=== PATIENT | female | born 1990 | race Hispanic/Latino ===

== ENCOUNTER 2018-07-22 21:02 | Emergency (ER) | payer SELFPAY ==
[2018-07-22 22:34] LABS: Urine Blood NEGATIVE (NEG); Urine Glucose NEGATIVE (NEG); Urine Protein 1+ (NEG)
[2018-07-22] MEDS ORDERED: KETOROLAC 30 MG/ML INJ ONE (22:58)
--- NOTE | 2018-07-22 23:14 | ER ---
Nurse's Notes [facility] Name: Cristiana Dunn Age: 28 yrs Sex: Female : 1990 Arrival Date: 07/22/2018 Time: 21:03 Bed 25 Private MD: Diagnosis: Abdominal and pelvic pain Presentation: 07/22 21:05 Presenting complaint: Patient states: "I am having abdominal pain. I have been told it jd3 is ovarian cyst so it might be that.". Transition of care: patient was not received from another setting of care. Onset of symptoms was July 22, 2018. Risk Assessment: Do you want to hurt yourself or someone else? Patient reports no desire to harm self or others. Initial Sepsis Screen: Does the patient meet any 2 criteria? No. Patient's initial sepsis screen is negative. Does the patient have a suspected source of infection? No. Patient's initial sepsis screen is negative. Care prior to arrival: None. 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 - Social history:: Smoking status: Patient uses tobacco products, denies chronic smoking, but will smoke occasionally. - Ebola Screening: : Patient negative for fever greater than or equal to 101.5 degrees Fahrenheit, and additional compatible Ebola Virus Disease symptoms. Screenin:27 Abuse screen: Denies threats or abuse. Nutritional screening: No deficits noted. tl3 Tuberculosis screening: No symptoms or risk factors identified. Fall Risk None identified. Assessment: 22:27 General: Appears uncomfortable, slender, well groomed, well developed, well nourished, tl3 Behavior is calm, cooperative, appropriate for age. Pain: Complains of pain in suprapubic area. Neuro: Level of Consciousness is awake, alert, obeys commands, Oriented to person, place, time, situation, Appropriate for age. Cardiovascular: Patient's skin is warm and dry. Respiratory: Airway is patent Respiratory effort is even, unlabored, Respiratory pattern is regular, symmetrical. GI: Bowel sounds present X 4 quads. Abdomen is tender to palpation in suprapubic area. : Urine is clear. 23:25 Reassessment: Patient and/or family updated on plan of care and expected duration. Pain tl3 level reassessed. Patient is alert, oriented x 3, equal unlabored respirations, skin warm/dry/pink. Vital Signs: 21:08 BP 110 / 58; Pulse 95; Resp 18 S; Temp 98.0(O); Pulse Ox 100% on R/A; Weight 84 kg (R); jd3 Height 5 ft. 9 in. (175.26 cm) (R); Pain 10/10; 23:25 BP 108 / 56; Pulse 78; Resp 18; Pulse Ox 100% on R/A; tl3 21:08 Body Mass Index 27.35 (84.00 kg, 175.26 cm) jd3 ED Course: 21:03 Patient arrived in ED. am2 21:06 Triage completed. jd3 21:09 Arm band placed on. jd3 21:31 [facility] kb 21:31 Leonel Silvestre MD is Attending Physician. kb 22:11 Gretchen Oreilly, CRISTELA is Primary Nurse. tl3 22:15 Urine collected: clean catch specimen, clear, shadia colored, Amount Voided: 100mL. jp3 22:27 Bed in low position. Call light in reach. tl3 22:31 US Transvaginal Study (Probe) In Process Unspecified. EDMS 23:25 No provider procedures requiring assistance completed. Patient did not have IV access tl3 during this emergency room visit. Administered Medications: 22:50 Drug: TORadol 60 mg Route: IM; Site: right gluteus; tl3 22:51 Follow up: Response: Medication administered at discharge. tl3 Outcome: 23:13 Discharge ordered by . kb 23:25 Discharged to home ambulatory. tl3 23:25 Condition: stable 23:25 Discharge instructions given to patient, family, Instructed on discharge instructions, follow up and referral plans. medication usage, Demonstrated understanding of instructions, follow-up care, medications, Prescriptions given X 1. 23:27 Patient left the ED. tl3 Signatures: Dispatcher [employer] EDMS Marilou Iyer FNP-C KEY WORKER-CkScarlet Solis am2 Curt Segura, RN RN jd3 Gretchen Oreilly RN RN tl3 Lonnie Starr jp3 Corrections: (The following items were deleted from the chart) 21:09 21:08 LMP 06/09/2018 stephenie jd3
--- NOTE | 2018-07-22 23:14 | EDPHYS ---
Physician Documentation [facility] Name: Cristiana Dunn Age: 28 yrs Sex: Female : 1990 Arrival Date: 07/22/2018 Time: 21:03 Bed 25 Private MD: ED Physician Leonel Silvestre HPI: 07/22 22:16 This 28 yrs old Female presents to ER via Ambulatory with complaints of Pelvic kb Pain, Abdominal Pain, Cyst. 22:16 The patient presents with pelvic pain, that is located in/on the suprapubic area, the kb pain does not radiate, the pain is described as moderate, intermittent. Onset: The symptoms/episode began/occurred today. Modifying factors: The symptoms are alleviated by nothing, the symptoms are aggravated by nothing. Associated signs and symptoms: The patient has no apparent associated signs or symptoms. Severity of symptoms: At their worst the symptoms were mild, moderate, in the emergency department the symptoms are unchanged. The patient has experienced a previous episode, last year, and the symptoms today are exactly the same, ovarian cyst. The patient has not recently seen a physician. 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 - Social history:: Smoking status: Patient uses tobacco products, denies chronic smoking, but will smoke occasionally. - Ebola Screening: : Patient negative for fever greater than or equal to 101.5 degrees Fahrenheit, and additional compatible Ebola Virus Disease symptoms. ROS: 22:15 Constitutional: Negative for fever, chills, and weight loss, Cardiovascular: Negative kb for chest pain, palpitations, and edema, Respiratory: Negative for shortness of breath, cough, wheezing, and pleuritic chest pain, Abdomen/GI: Negative for abdominal pain, nausea, vomiting, diarrhea, and constipation, MS/Extremity: Negative for injury and deformity, Skin: Negative for injury, rash, and discoloration, Neuro: Negative for headache, weakness, numbness, tingling, and seizure. 22:15 : Positive for pelvic pain. Exam: 22:15 Constitutional: This is a well developed, well nourished patient who is awake, alert, kb and in no acute distress. Head/Face: Normocephalic, atraumatic. Chest/axilla: Normal chest wall appearance and motion. Nontender with no deformity. No lesions are appreciated. Cardiovascular: Regular rate and rhythm with a normal S1 and S2. No gallops, murmurs, or rubs. Normal PMI, no JVD. No pulse deficits. Respiratory: Lungs have equal breath sounds bilaterally, clear to auscultation and percussion. No rales, rhonchi or wheezes noted. No increased work of breathing, no retractions or nasal flaring. Abdomen/GI: Soft, non-tender, with normal bowel sounds. No distension or tympany. No guarding or rebound. No evidence of tenderness throughout. Skin: Warm, dry with normal turgor. Normal color with no rashes, no lesions, and no evidence of cellulitis. MS/ Extremity: Pulses equal, no cyanosis. Neurovascular intact. Full, normal range of motion. Neuro: Awake and alert, GCS 15, oriented to person, place, time, and situation. Cranial nerves II-XII grossly intact. Motor strength 5/5 in all extremities. Sensory grossly intact. Cerebellar exam normal. Normal gait. 22:15 Abdomen/GI: Palpation: mild abdominal tenderness, in the suprapubic area. Vital Signs: 21:08 BP 110 / 58; Pulse 95; Resp 18 S; Temp 98.0(O); Pulse Ox 100% on R/A; Weight 84 kg (R); jd3 Height 5 ft. 9 in. (175.26 cm) (R); Pain 10/10; 23:25 BP 108 / 56; Pulse 78; Resp 18; Pulse Ox 100% on R/A; tl3 21:08 Body Mass Index 27.35 (84.00 kg, 175.26 cm) jd3 MDM: 22:00 Patient medically screened. kb 22:14 Data reviewed: vital signs, nurses notes. Data interpreted: Pulse oximetry: on room air kb is 100 %. Interpretation: normal. 23:13 Counseling: I had a detailed discussion with the patient and/or guardian regarding: the kb historical points, exam findings, and any diagnostic results supporting the discharge/admit diagnosis, lab results, radiology results, the need for outpatient follow up, an OB/Gyne specialist, to return to the emergency department if symptoms worsen or persist or if there are any questions or concerns that arise at home. 23:13 Response to treatment: the patient's symptoms have resolved after treatment, the kb patient's pain is gone. 07/22 21:13 Order name: Urine Culture snw 07/22 21:13 Order name: Urine Microscopic Only snw 07/22 22:06 Order name: US Transvaginal Study (Probe) kb 07/22 22:22 Order name: Urine Dipstick--Ancillary (enter results); Complete Time: 22:40 mw2 07/22 22:22 Order name: Urine --Ancillary (enter results); Complete Time: 22:40 mw2 07/22 21:13 Order name: Urine Test (obtain specimen); Complete Time: 22:51 snw 07/22 21:13 Order name: Urine Dipstick-Ancillary (obtain specimen); Complete Time: 22:51 snw Administered Medications: 22:50 Drug: TORadol 60 mg Route: IM; Site: right gluteus; tl3 22:51 Follow up: Response: Medication administered at discharge. tl3 Disposition: 07/23 12:29 Co-signature as Attending Physician, Leonel Silvestre MD I agree with the assessment and deven plan of care. Disposition: 07/22/18 23:13 Discharged to Home. Impression: Abdominal and pelvic pain. - Condition is Stable. - Discharge Instructions: Pelvic Pain, Female, [id number]. - Prescriptions for Diclofenac Sodium 75 mg Oral Tablet, Delayed Release (E.C.) - take 1 tablet by ORAL route 2 times per day As needed; 30 tablet. - Medication Reconciliation Form, Thank You Letter, Antibiotic Education, Prescription Opioid Use form. - Follow up: Emergency Department; When: As needed; Reason: Worsening of condition. Follow up: Private Physician; When: 2 - 3 days; Reason: Recheck today's complaints, Continuance of care, Re-evaluation by your physician. Signatures: Dispatcher [employer] Marilou Anderson, Leonel Krishna MD MD cha Therrien, Shelly, FNP-C GODFREY-Curt Pearson RN RN jd3 Lowrey, Tammy, RN RN tl3 Corrections: (The following items were deleted from the chart) 07/22 23:27 23:13 07/22/2018 23:13 Discharged to Home. Impression: Abdominal and pelvic pain. tl3 Condition is Stable. Forms are Medication Reconciliation Form, Thank You Letter, Antibiotic Education, Prescription Opioid Use. Follow up: Emergency Department; When: As needed; Reason: Worsening of condition. Follow up: Private Physician; When: 2 - 3 days; Reason: Recheck today's complaints, Continuance of care, Re-evaluation by your physician. kb
[2018-07-22 23:37] LABS: Urine Bacteria LOADED /HPF (<20); Urine Culture Reflex Order NOT NEEDED; Urine Mucus LIGHT /HPF (NONE SEEN); Urine RBC NONE SEEN /HPF (NONE SEEN)
--- NOTE | 2018-07-23 08:29 | RAD REPORT ---
EXAM DESCRIPTION: US - Transvaginal Study Probe - 07/22/2018 10:32 pm CLINICAL HISTORY: Pelvic pain COMPARISON: none FINDINGS: The uterus measures 7 x 3 x 5cm. A fibroid is not seen. The endometrial stripe measures 10 millimeters The ovaries are normal in size and echotexture. Right and left adnexum unremarkable No significant free fluid is seen. IMPRESSION: Unremarkable pelvic ultrasound
== END 2018-07-22 23:27 | disposition home or self-care (01) ==
LOC: ER 21:02
DX: R10.2 Pelvic and perineal pain (principal); Z72.0 Tobacco use; Z91.041 Radiographic dye allergy status
CPT/HCPCS: 76830; 81003; 81015; 81025; 87077; 87086; 87088; 87186; 96372; 99284

== ENCOUNTER 2018-08-01 22:19 | Emergency (ER) | payer SELFPAY ==
--- OUTSIDE RECORDS SUMMARY | 2018-08-01 22:21 | XMS REPORT | Summary of Care ---
:1990 Author Organization [facility] Address [facility] [place], [place] [address]- Encounter HQ Aaron(FIN) [id number] Date(s): 06/16/16 - 06/16/[address] [address]- Discharge Diagnosis: Abdominal pain during Discharge Disposition: Home or Self Care Attending Physician: Rena Alcaraz MD Vital Signs Most recent to oldest [Reference Range]: 1 2 Height 175.26 cm (06/16/16 4:50 PM) Temperature Oral [96.4-99.1 DegF] 98.7 DegF (06/16/16 4:50 PM) Blood Pressure [90-140/60-90 mmHg] 114/72 mmHg (06/16/16 4:50 PM) Systolic Blood Pressure [90-140 mmHg] 119 mmHg (06/16/16 7:59 PM) Diastolic Blood Pressure [60-90 mmHg] 72 mmHg (06/16/16 7:59 PM) Respiratory Rate [14-20 BRMIN] 16 BRMIN 18 BRMIN (06/16/16 7:59 PM) (06/16/16 4:50 PM) Peripheral Pulse Rate [60-100 bpm] 82 bpm 82 bpm (06/16/16 7:59 PM) (06/16/16 4:50 PM) Weight 83.182 kg (06/16/16 4:50 PM) Body Mass Index 27.08 m2 (06/16/16 4:50 PM) Problem List No data available for this section Allergies, Adverse Reactions, Alerts Substance Reaction Severity Status NKDA Active Medications Saline Flush 0.9% 10 mL, Route: IVP, Drug Form: INJ, kg, PRN, PRN Line Flush, Start date: 16:50:00 CHARCOAL KILN BURNER, Duration: 30 day, Stop date: 07/16/16 16:49:00 CHARCOAL KILN BURNER Notes: (Same as: BD Posiflush) Start Date: 06/16/16 Stop Date: 06/16/16 Status: Discontinued Results BLOOD BANK RESULTS Most recent to oldest [Reference Range]: 1 ABO/Rh A POS *Unknown* (06/16/16 6:10 PM) ELECTROLYTES Most recent to oldest [Reference Range]: 1 Sodium Lvl [135-145 mEq/L] 136 mEq/L (06/16/16 6:10 PM) Potassium Lvl [3.5-5.1 mEq/L] 3.4 mEq/L *LOW* (06/16/16 6:10 PM) Chloride Lvl [95-109 mEq/L] 102 mEq/L (06/16/16 6:10 PM) CO2 [24-32 mEq/L] 24 mEq/L (06/16/16 6:10 PM) AGAP [10.0-20.0 mEq/L] 13.4 mEq/L (06/16/16 6:10 PM) CHEM PANEL Most recent to oldest [Reference Range]: 1 Creatinine Lvl [0.50-1.40 mg/dL] 0.50 mg/dL (06/16/16 6:10 PM) eGFR 135 mL/min/1.73m2 1 *NA* (06/16/16 6:10 PM) BUN [7-22 mg/dL] 6 mg/dL *LOW* (06/16/16 6:10 PM) B/C Ratio [6-25] 12 (06/16/16 6:10 PM) Glucose Lvl [70-99 mg/dL] 74 mg/dL (06/16/16 6:10 PM) Total Protein [6.4-8.4 g/dL] 7.9 g/dL (06/16/16 6:10 PM) Albumin Lvl [3.5-5.0 g/dL] 3.6 g/dL (06/16/16 6:10 PM) Globulin [2.7-4.2 g/dL] 4.3 g/dL *HI* (06/16/16 6:10 PM) A/G Ratio [0.7-1.6] 0.8 (06/16/16 6:10 PM) Calcium Lvl [8.5-10.5 mg/dL] 9.0 mg/dL (06/16/16 6:10 PM) ALT [0-65 unit/L] 30 unit/L (06/16/16 6:10 PM) AST [0-37 unit/L] 15 unit/L (06/16/16 6:10 PM) Alk Phos [39-136 unit/L] 53 unit/L (06/16/16 6:10 PM) Bili Total [0.2-1.3 mg/dL] 0.3 mg/dL (06/16/16 6:10 PM) 1Result Comment: The eGFR is calculated using the CKD-EPI formula. In most young , healthy individualsthe eGFR will be >90 mL/min/1.73m2. The eGFR declines with age. An eGFR of 60-89 may be normal in some populations, particularly the elderly, for whom the CKD-EPI formula has not been extensively validated. Use of the eGFR is not recommended in the following populations: Individuals with unstable creatinine concentrations, including patients and those with serious co-morbid conditions. Patients with extremes in muscle mass or diet. The data above are obtained from the National Kidney Disease Education Program ( NKDEP) which additionally recommends that when the eGFR is used in patients with extremes of body mass index for purposesof drug dosing, the eGFR should be multiplied by the estimated BMI.ENDOCRINOLOGY Most recent to oldest [Reference Range]: 1 [place] [address] mIU/mL *NA* (06/16/16 6:10 PM) URINE AND STOOL Most recent to oldest [Reference Range]: 1 UA Turbidity [Clear] Slight *ABN* (06/16/16 6:10 PM) UA Color Katelynn *NA* (06/16/16 6:10 PM) UA pH [5.0-8.0] 5.0 (06/16/16 6:10 PM) UA Spec Grav [<=1.030] 1.027 (06/16/16 6:10 PM) UA Glucose [Negative mg/dL] Negative mg/dL *NA* (06/16/16 6:10 PM) UA Blood [Negative] Negative (06/16/16 6:10 PM) UA Ketones [Negative mg/dL] Negative mg/dL *NA* (06/16/16 6:10 PM) UA Protein [Negative mg/dL] Negative mg/dL (06/16/16 6:10 PM) UA Urobilinogen [0.1-1.0 mg/dL] <=1.0 mg/dL *NA* (06/16/16 6:10 PM) UA Bili [Negative] Negative *NA* (06/16/16 6:10 PM) UA Leuk Est [Negative] Negative (06/16/16 6:10 PM) UA Nitrite [Negative] Negative (06/16/16 6:10 PM) UA WBC [0-5 /HPF] 3 /HPF (06/16/16 6:10 PM) UA RBC [0-2 /HPF] 3 /HPF *HI* (06/16/16 6:10 PM) UA Bacteria [None Seen /HPF] Occasional /HPF *NA* (06/16/16 6:10 PM) UA Sq Epi [Few /LPF] Many /LPF *ABN* (06/16/16 6:10 PM) UA Mucus [None Seen /LPF] Many /LPF *ABN* (06/16/16 6:10 PM) HEMATOLOGY Most recent to oldest [Reference Range]: 1 WBC [3.7-10.4 K/CMM] 6.3 K/CMM (06/16/16 6:10 PM) RBC [4.20-5.40 M/CMM] 3.78 M/CMM *LOW* (06/16/16 6:10 PM) Hgb [12.0-16.0 g/dL] 10.6 g/dL *LOW* (06/16/16 6:10 PM) Hct [36.0-48.0 %] 32.7 % *LOW* (06/16/16 6:10 PM) MCV [80.0-98.0 fL] 86.7 fL (06/16/16 6:10 PM) MCH [27.0-31.0 pg] 28.1 pg (06/16/16 6:10 PM) MCHC [32.0-36.0 g/dL] 32.4 g/dL (06/16/16 6:10 PM) RDW [11.5-14.5 %] 12.7 % (06/16/16 6:10 PM) Platelet [133-450 K/CMM] 398 K/CMM (06/16/16 6:10 PM) MPV [7.4-10.4 fL] 7.3 fL *LOW* (06/16/16 6:10 PM) Segs [45.0-75.0 %] 61.6 % (06/16/16 6:10 PM) Lymphocytes [20.0-40.0 %] 28.9 % (06/16/16 6:10 PM) Monocytes [2.0-12.0 %] 8.4 % (06/16/16 6:10 PM) Eosinophils [0.0-4.0 %] 0.8 % (06/16/16 6:10 PM) Basophils [0.0-1.0 %] 0.3 % (06/16/16 6:10 PM) Segs-Bands # [1.5-8.1 K/CMM] 3.8 K/CMM (06/16/16 6:10 PM) Lymphocytes # [1.0-5.5 K/CMM] 1.8 K/CMM (06/16/16 6:10 PM) Monocytes # [0.0-0.8 K/CMM] 0.5 K/CMM (06/16/16 6:10 PM) Eosinophils # [0.0-0.5 K/CMM] 0.1 K/CMM (06/16/16 6:10 PM) Basophils # [0.0-0.2 K/CMM] 0.0 K/CMM (06/16/16 6:10 PM) Immunizations No data available for this section Procedures No data available for this section Social History Social History Type Response Smoking Status Never smoker; Exposure to Tobacco Smoke None; Cigarette Smoking Last 365 Days No; Reg Smoking Cessation Counseling No Assessment and Plan No data available for this section
--- OUTSIDE RECORDS SUMMARY | 2018-08-01 22:22 | XMS REPORT | Summary of Care ---
:1990 Author Organization [facility] Address [address] [place], [place] [address]- Encounter HQ Aaron(FIN) [id number] Date(s): 05/30/17 - 05/30/17 [facility] [address] [place] [address]- [phone] Discharge Diagnosis: Acute head injury Discharge Diagnosis: Brain concussion Discharge Disposition: Home or Self Care Attending Physician: Kelly Grimm MD Vital Signs Most recent to oldest [Reference Range]: 1 2 Height 175.26 cm (05/30/17 4:33 PM) Temperature Oral [96.4-99.1 DegF] 98.4 DegF 99.3 DegF (05/30/17 10:49 PM) *HI* (05/30/17 4:33 PM) Blood Pressure [90-140/60-90 mmHg] 113/60 mmHg 102/69 mmHg (05/30/17 10:49 PM) (05/30/17 4:33 PM) Respiratory Rate [14-20 BRMIN] 16 BRMIN 18 BRMIN (05/30/17 10:49 PM) (05/30/17 4:33 PM) Peripheral Pulse Rate [60-100 bpm] 73 bpm 76 bpm (05/30/17 10:49 PM) (05/30/17 4:33 PM) Weight 82.727 kg (05/30/17 4:33 PM) Body Mass Index 26.93 m2 (05/30/17 4:33 PM) Problem List Condition Effective Dates Status Health Status Informant Gastroenteritis(Confirmed) Resolved Allergies, Adverse Reactions, Alerts Substance Reaction Severity Status contrast media (iodine-based) Active Medications acetaminophen 650 mg, 2 tab, Route: PO, Drug form: TAB, ONCE, Dosing Weight 82.727, kg, Priority: STAT, Start date: 12/16/17 22:10:00 [employer]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 (Same as: Tylenol) Start Date: 05/30/17 Stop Date: 05/30/17 Status: Completed Results No data available for this section Immunizations No data available for this section Procedures No data available for this section Social History Social History Type Response Smoking Status Never smoker; Exposure to Tobacco Smoke None; Cigarette Smoking Last 365 Days No; Reg Smoking Cessation Counseling No Assessment and Plan No data available for this section
--- OUTSIDE RECORDS SUMMARY | 2018-08-01 22:22 | XMS REPORT ---
:1990 [facility] [address] [place] [address] Dr. P[address] [place] [address] Care Team Providers Name Role Phone DAKOTA REES Primary Care Provider Unavailable DAKOTA REES Unavailable Unavailable Problems This patient has no known problems. Allergies, Adverse Reactions, Alerts This patient has no known allergies or adverse reactions. Medications This patient has no known medications. Encounters Start End Encounter Admission Attending Care Care Encounter Date/Time Date/Time Type Type Clinicians Facility Department ID 2016-11-13 2016-11-13 Outpatient [facility] [id number] 00:01:00 00:01:00 2016-10-31 2016-10-31 Emergency [facility] [id number] 03:03:00 03:03:00 2016-10-23 2016-10-23 Outpatient [facility] [id number] 09:10:00 09:10:00 Results Test Description Test Time Test Comments Text Results Atomic Results Result Comments Hemogram 2016-11-09 12:31:00 Test Item Value Reference Range Comments WBC (test code=WBC) 12.1 K/cumm 4.4-10.5 RBC (test code=RBC) 3.55 M/cumm 3.75-5.20 Hemoglobin (test code=HGB) 9.6 gm/dL 12.2-14.8 Hematocrit (test code=HCT) 29.7 % 36.5-44.4 MCV (test code=MCV) 83.5 fL 80-100 MCH (test code=MCH) 27.1 pg 27.0-32.5 MCHC (test code=MCHC) 32.4 g/dL 32.0-37.5 RDW (test code=RDW) 15.2 % 11.5-14.5 Platelet Count (test code=PLTCT) 383 K/cumm 140-440 MPV (test code=MPV) 7.7 fL RPR, [id number] 03:18:00 Test Item Value Reference Range Comments RPR (test code=RPR) Non-Reactive Non-Reactive Lactate [id number] 01:06:00 Test Item Value Reference Range Comments LDH (test code=LDH) 144 U/L 135-214 Hemogram [id number] 01:03:00 Test Item Value Reference Range Comments WBC (test code=WBC) 10.5 K/cumm 4.4-10.5 RBC (test code=RBC) 3.73 M/cumm 3.7-5.2 Hemoglobin (test code=HGB) 9.9 g/dL 12.2-14.8 Hematocrit (test code=HCT) 31.7 % 36.5-44.4 MCV (test code=MCV) 85.0 fL 80.0-100.0 MCH (test code=MCH) 26.6 pg 27.0-32.5 MCHC (test code=MCHC) 31 g/dL 32-37 RDW (test code=RDW) 15.2 % 11.5-14.5 Platelet Count (test code=PLTCT) 369 K/cumm 140-440 MPV (test code=MPV) 8.1 fL Comprehensive Metabolic [id number] 00:51:00 Test Item Value Reference Range Comments Sodium (test code=NA) 136 mmol/L 135-145 Potassium (test code=K) 4.0 mmol/L 3.5-5.1 Chloride (test code=CL) 99 mmol/L 98-105 Carbon Dioxide (test 24 mmol/L 22-29 code=CO2) Glucose (test code=GLU) 93 mg/dL 70-115 Blood Urea Nitrogen 6 mg/dL 6-20 (test code=BUN) Creatinine (test 0.5 mg/dL 0.5-0.9 code=CREAT) Calcium (test code=CA) 9.6 mg/dL 8.3-10.5 Prot Total (test 6.5 g/dL 6.4-8.3 code=TP) Albumin (test code=ALB) 3.9 g/dL 3.5-5.2 A/G Ratio (test 1.5 Ratio code=AGRATIO) Globulin (test 2.6 2.9-3.1 code=GLOB) Bili Total (test 0.5 mg/dL 0.1-0.9 code=TBIL) Alk Phos (test 177 U/L 35-104 code=APHOS) AST (test code=AST) 17 U/L 1-32 ALT (test code=ALT) 12 U/L 1-33 BUN/Creatinine Ratio 12.0 (test code=BCRATIO) Anion Gap (test 13 mmol/L 7-16 code=AGAP) Estimated GFR (test >60 mL/min/1.73m2 eGFR (estimated Glomerular code=GFR) Filtration Rate) is an estimated value,calculated from the patient's serum creatinine using the MDRD equation.It is NOT the patient's actual GFR. The eGFR provides a more clinicallyuseful measure of kidney disease than serum creatinine alone.This calculation takes sex and race into account, if the informationis provided. If the race is not provided, and the patient isAfrican-Jamaican, multiply by 1.212. If sex is not provided, and thepatient is female, multiply by 0.742. Results for patients <18 years ofage have not been validated by the MDRD study and should be interpretedwith caution.eGFR Result Interpretation:eGFR > or=60 is in the Normal RangeeGFR < 60 may mean kidney diseaseeGFR < 15 may mean kidney failureRanges recommended by the National Kidney Foundation,http://nkdep.nih .gov Uric [id number] 00:51:00 Test Item Value Reference Range Comments Uric Acid (test code=UA) 3.6 mg/dL 2.4-5.7 Protein, Urine [id number] 00:50:00 Test Item Value Reference Range Comments TP, Urine (test code=TPURRM) 22.9 mg/dL Creatinine, Urine [id number] 00:50:00 Test Item Value Reference Range Comments Creatinine, Urine Rm (test code=CREURRM) 73.8 mg/dL 10.0-300.0 Blood [id number] 23:20:00 Test Item Value Reference Range Comments pH, Blood Gas (test 7.291 pH Units code=BGPH) pCO2 (test code=PCO2) 58.2 mm Hg pO2 (test code=PO2) 15.6 mm Hg PO2 is not a reliable measurement of the patient's oxygenation. Reference range not established for this test. Bicarbonate (test code=HCO3) 28.0 mmol/L Base Excess (test code=BE) 0.6 mmol/L O2 Saturation (test 24.7 % % O2SAT is not a code=O2SAT) reliable measurement of the patient's oxygenation.Reference range not established for this test. tHB (test code=RTHB) 16.9 gm/dL Hematocrit, Blood Gas (test 51.9 % code=BGHCT) O2Hb (test code=RO2HB) 24 Carboxyhemoglobin (test 1.5 % code=CARHGB) Methemoglobin (test 2.2 % code=METHGB) Patient Temperature (test 37.0 Degrees Celcius code=PTTEMP) Puncture Site (test Umbilical code=PUNSITE) Respiratory Rate (test 0 code=RESP RATE) Hep B Surface [id number] 14:37:00 Test Item Value Reference Range Comments Hep Bs Ag (test code=HBSAG) Nonreactive Non-Reactive CBC LD with [id number] 14:13:00 Test Item Value Reference Range Comments WBC (test code=WBC) 8.8 K/cumm 4.4-10.5 RBC (test code=RBC) 3.74 M/cumm 3.7-5.2 Hemoglobin (test code=HGB) 9.9 g/dL 12.2-14.8 Hematocrit (test code=HCT) 31.4 % 36.5-44.4 MCV (test code=MCV) 83.9 fL 80.0-100.0 MCH (test code=MCH) 26.4 pg 27.0-32.5 MCHC (test code=MCHC) 32 g/dL 32-37 RDW (test code=RDW) 15.0 % 11.5-14.5 Platelet Count (test code=PLTCT) 415 K/cumm 140-440 MPV (test code=MPV) 8.7 fL Diff Method (test code=DIFFM) Auto Neutrophil (test code=NEUT) 70.4 % 36.0-70.0 Lymphocyte (test code=LYMPH) 19.2 % 12.0-44.0 Monocyte (test code=MONO) 9.2 % 0.0-11.0 Eosinophil (test code=EOS) 1.0 % 0.0-7.0 Basophil (test code=BASO) 0.2 % 0.0-2.0 Neutro Abs (test code=ANEUT) 6.2 K/cumm 1.6-7.4 Lymph Abs (test code=ALYMPH) 1.7 K/cumm 0.5-4.6 [place] Abs (test code=AMONO) 0.8 K/cumm 0.0-1.2 Eos Abs (test code=AEOS) 0.1 K/cumm 0.0-0.7 Baso Abs (test code=ABASO) 0.0 K/cumm 0.0-0.2 Chlamydia/GC [id number] 14:11:00 Test Item Value Reference Range Comments Chlamydia trachomatis, CATHLEEN (test pryy=710130) Negative Negative Neisseria gonorrhoeae, CATHLEEN (test paio=172731) Negative Negative Culture, Vaginal Strep [id number] 08:34:00Specimen: VaginaCollected: 10/12 19:39 Status: Final Last Updated: 10/16/2016 08:39 Culture Result ( Final) (Final) 10/15/16 No Group B Strep isolated at 24 hours 10/16/16 No Group B Strep isolated at 48 hoursCulture, [id number] 07:48:00Specimen: UrineCollected: 10/12/2016 18:21 Status: Final Last Updated: 10/15/2016 07: 48 Culture Result (Final) (Final) 10/14/16 <10,000 CFU/mL Gamma Hemolytic StreptococcusRPR, [id number] 03:18:00 Test Item Value Reference Range Comments RPR (test code=RPR) Non-Reactive Non-Reactive Rubella [id number] 03:18:00 Test Item Value Reference Range Comments Rubella IgG (test code=RUBELIGG) Immune Immune HIV [id number] 22:59:00 Test Item Value Reference Range Comments HIV 1/2 Antibody (test Non-Reactive Non-Reactive HIV1/2 Antibody screen result code=HIV1/2AB) indicates the absence of HIV1 and JLD0lusvdxzox.However, A Non-Reactive screen result does not rule out exposure orinfection. If an acute infection is suspected, HIV RNA Quantitative is recommended. P24 Antigen (test Non-Reactive Non-Reactive P24 Ag screen result indicates code=P24) the absence of P24 antigen, which is anindicator of HIV-1 acute infection.However, A Non-Reactive screen does not rule out exposure or infection.If acute HIV-1 is suspected, HIV RNA Quantitative is recommended. Antibody Screen - [id number] 21:23:00 Test Item Value Reference Range Comments Antibody Screen (test code=ABSCR) Negative Blood Type and [id number] 21:22:00 Test Item Value Reference Range Comments ABO type (test code=ABO) A Rh Type (test code=RH) Positive Hep B Surface [id number] 21:06:00 Test Item Value Reference Range Comments Hep Bs Ag (test code=HBSAG) Nonreactive Non-Reactive Comprehensive Metabolic [id number] 20:56:00 Test Item Value Reference Range Comments Sodium (test code=NA) 137 mmol/L 135-145 Potassium (test code=K) 3.7 mmol/L 3.5-5.1 Chloride (test code=CL) 101 mmol/L 98-105 Carbon Dioxide (test 22 mmol/L 22-29 code=CO2) Glucose (test code=GLU) 73 mg/dL 70-115 Blood Urea Nitrogen 6 mg/dL 6-20 (test code=BUN) Creatinine (test 0.5 mg/dL 0.5-0.9 code=CREAT) Calcium (test code=CA) 9.8 mg/dL 8.3-10.5 Prot Total (test 6.7 g/dL 6.4-8.3 code=TP) Albumin (test code=ALB) 3.8 g/dL 3.5-5.2 A/G Ratio (test 1.3 Ratio code=AGRATIO) Globulin (test 2.9 2.9-3.1 code=GLOB) Bili Total (test 0.3 mg/dL 0.1-0.9 code=TBIL) Alk Phos (test 126 U/L 35-104 code=APHOS) AST (test code=AST) 17 U/L 1-32 ALT (test code=ALT) 11 U/L 1-33 BUN/Creatinine Ratio 12.0 (test code=BCRATIO) Anion Gap (test 14 mmol/L 7-16 code=AGAP) Estimated GFR (test >60 mL/min/1.73m2 eGFR (estimated Glomerular code=GFR) Filtration Rate) is an estimated value,calculated from the patient's serum creatinine using the MDRD equation.It is NOT the patient's actual GFR. The eGFR provides a more clinicallyuseful measure of kidney disease than serum creatinine alone.This calculation takes sex and race into account, if the informationis provided. If the race is not provided, and the patient isAfrican-Jamaican, multiply by 1.212. If sex is not provided, and thepatient is female, multiply by 0.742. Results for patients <18 years ofage have not been validated by the MDRD study and should be interpretedwith caution.eGFR Result Interpretation:eGFR > or=60 is in the Normal RangeeGFR < 60 may mean kidney diseaseeGFR < 15 may mean kidney failureRanges recommended by the National Kidney Foundation,http://nkdep.nih .gov [id number] 20:56:00 Test Item Value Reference Range Comments Amphetamine (test code=AMPH) Negative Negative For diagnostic purposes only, positive results should always be assessedin conjunctionwith the patient's medical history,clinical examination and otherfindings.To fulfill legal requirements, a more specific alternate chemical methodmust be used inorder to obtain a Confirmed analytical result. GC/MS is the preferred confirmatory method. Barbiturates (test code=JAYSON) Negative Negative Benzodiazepine (test Negative Negative code=KAYLENE) Cocaine (test code=COCA) Negative Negative Methadone (test code=MTHD) Negative Negative Opiates (test code=OPIA) Negative Negative PCP (test code=PCP) Negative Negative Propoxyphene (test Negative Negative code=PROPOX) THC (test code=THC) Negative Negative Urinalysis [id number] 20:46:00 Test Item Value Reference Range Comments Color (test code=COLOR) Yellow Yellow,Straw,Pl yellow Clarity (test code=CLAR) Clear Clear Specific [place] (test code=SPGR) 1.007 1.001-1.035 pH (test code=PH) 7.0 5.0-9.0 Ketone (test code=KET) Negative mg/dL Negative Glucose (test code=GLUCUR) Negative mg/dL Negative Protein (test code=PROT) Negative mg/dL Negative Bilirubin (test code=BILI) Negative mg/dL Negative Occult Blood (test code=UDOB) Negative Negative Urobilinogen (test code=UROB) 0.2 mg/dL 0.2-1.0 Nitrite (test code=NIT) Negative Negative Leuk Esterase (test code=LEUK) Negative Negative Micros Exam (test code=MEXAM) Not indicated CBC LD with [id number] 20:40:00 Test Item Value Reference Range Comments WBC (test code=WBC) 8.0 K/cumm 4.4-10.5 RBC (test code=RBC) 3.69 M/cumm 3.7-5.2 Hemoglobin (test code=HGB) 9.6 g/dL 12.2-14.8 Hematocrit (test code=HCT) 31.0 % 36.5-44.4 MCV (test code=MCV) 84.0 fL 80.0-100.0 MCH (test code=MCH) 26.0 pg 27.0-32.5 MCHC (test code=MCHC) 31 g/dL 32-37 RDW (test code=RDW) 14.7 % 11.5-14.5 Platelet Count (test code=PLTCT) 383 K/cumm 140-440 MPV (test code=MPV) 7.6 fL Diff Method (test code=DIFFM) Auto Neutrophil (test code=NEUT) 69.5 % 36.0-70.0 Lymphocyte (test code=LYMPH) 21.8 % 12.0-44.0 Monocyte (test code=MONO) 7.8 % 0.0-11.0 Eosinophil (test code=EOS) 0.7 % 0.0-7.0 Basophil (test code=BASO) 0.2 % 0.0-2.0 Neutro Abs (test code=ANEUT) 5.6 K/cumm 1.6-7.4 Lymph Abs (test code=ALYMPH) 1.7 K/cumm 0.5-4.6 [place] Abs (test code=AMONO) 0.6 K/cumm 0.0-1.2 Eos Abs (test code=AEOS) 0.1 K/cumm 0.0-0.7 Baso Abs (test code=ABASO) 0.0 K/cumm 0.0-0.2
[2018-08-02 00:15] LABS: Absolute Lymphocytes (CBC) 2.5 K/uL (0.7-4.9); Absolute Monocytes 0.6 K/uL (0.1-1.3); Absolute Neutrophil 3.2 K/uL (1.8-8.0); Basophils % 0.4 % (0-1.3); Eosinophils % 1.4 % (0-4.4); Hematocrit 39.1 % (36.0-45.0); Lymphocytes % 38.8 % (15.3-44.8); MPV 8.5 fL (7.6-11.3); RBC Red Blood Cell Count 4.55 M/uL (3.86-4.86)
[2018-08-02] MEDS ORDERED: NA CHLORIDE 0.9% 1,000 ML ONE (00:20)
[2018-08-02 00:29] LABS: Protime INR 1.04
[2018-08-02 00:34] LABS: Urine Blood TRACE (NEG); Urine Glucose NEGATIVE (NEG); Urine Protein NEGATIVE (NEG); Urine pH 5.5 (5.0-7.0)
[2018-08-02 00:44] LABS: ALT/SGPT 60 U/L (12-78); AST/SGOT 49 U/L (15-37); Alkaline Phosphatase 85 U/L (45-117); BUN Blood Urea Nitrogen 12 mg/dL (7-18); Bicarbonate 24 mmol/L (21-32); Bilirubin Direct 0.1 mg/dL (0-0.2); Bilirubin Total 0.3 mg/dL (0.2-1.0); Glucose Level 104 mg/dL (74-106); Magnesium 2.2 mg/dL (1.8-2.4); NT PRO-BNP 9 pg/mL (<125); Potassium 3.7 mmol/L (3.5-5.1); Protein, Total 8.3 g/dL (6.4-8.2); Sodium Level 139 mmol/L (136-145); Troponin (Emerg Dept Use Only) < 0.02 ng/mL (0.0-0.045)
[2018-08-02] MEDS ORDERED: ONDANSETRON 4 MG/2 ML VIAL ONE (01:16)
[2018-08-02] MEDS ORDERED: FENTANYL CITR 100 MCG/2 ML ONE (01:16)
--- NOTE | 2018-08-02 02:15 | ER ---
Nurse's Notes [facility] Name: Cristiana Dunn Age: 28 yrs Sex: Female : 1990 Arrival Date: 08/01/2018 Time: 22:20 Bed 27 Private MD: Diagnosis: Syncope and collapse Presentation: 08/01 22:38 Presenting complaint: Patient states: she was having a bowel movement and when she aa1 stood up she became very dizzy and had to lay down. Reports she has also had heartburn today as well. Transition of care: patient was not received from another setting of care. Onset of symptoms was August 01, 2018. Risk Assessment: Do you want to hurt yourself or someone else? Patient reports no desire to harm self or others. Initial Sepsis Screen: Does the patient meet any 2 criteria? No. Patient's initial sepsis screen is negative. Does the patient have a suspected source of infection? No. Patient's initial sepsis screen is negative. Care prior to arrival: None. 22:38 Method Of Arrival: Wheelchair aa1 22:38 Acuity: JESS 3 aa1 Triage Assessment: 22:40 General: Appears in no apparent distress. comfortable, Behavior is calm, cooperative, aa1 appropriate for age. 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 - Social history:: Smoking status: Patient/guardian denies using tobacco. - Ebola Screening: : No symptoms or risks identified at this time. Screenin:47 Abuse screen: Denies threats or abuse. Denies injuries from another. Nutritional mg2 screening: No deficits noted. Tuberculosis screening: No symptoms or risk factors identified. Fall Risk IV access (20 points). Assessment: 22:48 General: Appears in no apparent distress. comfortable, Behavior is calm, cooperative. mg2 Pain: Complains of pain in abdomen Pain does not radiate. Pain currently is 3 out of 10 on a pain scale. Quality of pain is described as aching, Pain began gradually, Is intermittent. Neuro: Level of Consciousness is awake, alert, obeys commands, Oriented to person, place, time, situation, Reports a syncopal episode. Cardiovascular: Capillary refill < 3 seconds Patient's skin is warm and dry. Respiratory: Airway is patent Respiratory effort is even, unlabored, Respiratory pattern is regular, symmetrical. GI: Reports nausea. : No signs and/or symptoms were reported regarding the genitourinary system. EENT: No signs and/or symptoms were reported regarding the EENT system. Derm: Skin is intact, is healthy with good turgor, Skin is pink, warm \T\ dry. normal. Musculoskeletal: Circulation, motion, and sensation intact. Capillary refill < 3 seconds. 23:00 GI:. EENT: Reports nasal bleeding yesterday. mg2 08/02 00:15 Cardiovascular: Rhythm is sinus rhythm. mg2 Vital Signs: 08/01 22:40 BP 110 / 76; Pulse 89; Resp 18; Temp 98.6; Pulse Ox 100% on R/A; Weight 82 kg (R); aa1 Height 5 ft. 9 in. (175.26 cm); Pain 8/10; 23:53 BP 109 / 72; Pulse 79; Resp 18; Pulse Ox 100% on R/A; mg2 18 00:15 BP 112 / 61 Supine; Pulse 73; Resp 18; Pulse Ox 100% on R/A; mg2 00:15 BP 116 / 71 Sitting; Pulse 73; Resp 18; Pulse Ox 100% on R/A; mg2 00:15 BP 115 / 70 Standing; Pulse 78; Resp 18; Pulse Ox 100% on R/A; mg2 01:13 BP 116 / 74; Pulse 82; Resp 18; Pulse Ox 100% on R/A; mg2 02:13 BP 114 / 61; Pulse 81; Resp 18; Pulse Ox 100% on R/A; Pain 1/10; mg2 08/01 22:40 Body Mass Index 26.70 (82.00 kg, 175.26 cm) aa1 ED Course: 08/01 22:20 Patient arrived in ED. am2 22:33 Darvin Perales, RN is Primary Nurse. mg2 22:39 Triage completed. aa1 22:40 Arm band placed on right wrist. aa1 22:46 No provider procedures requiring assistance completed. Inserted saline lock: 20 gauge mg2 in right antecubital area, using aseptic technique. Blood collected. 22:49 Patient has correct armband on for positive identification. Placed in gown. Bed in low mg2 position. Side rails up X 1. Pulse ox on. NIBP on. 22:54 Fernando Washington PA is PHCP. jr8 22:54 Byron Overton MD is Attending Physician. jr8 08/02 00:43 X-ray completed. Portable x-ray completed in exam room. Patient tolerated procedure kw well. 00:46 XRAY Chest (1 view) In Process Unspecified. EDMS 02:14 IV discontinued, intact, bleeding controlled, No redness/swelling at site. Pressure mg2 dressing applied. Administered Medications: 00:14 Drug: NS 0.9% 1000 ml Route: IV; Rate: 1000 ml; Site: right antecubital; mg2 01:36 Follow up: Response: No adverse reaction; IV Status: Completed infusion; IV Intake: mg2 1000ml 01:07 Drug: Zofran 4 mg Route: IVP; Site: right antecubital; mg2 01:34 Follow up: Response: No adverse reaction; Marked relief of symptoms mg2 01:08 Drug: fentaNYL (PF) 50 mcg Route: IVP; Site: right antecubital; mg2 01:35 Follow up: Response: No adverse reaction; Marked relief of symptoms mg2 Point of Care Testing: Blood Glucose: 02 22:40 Blood Glucose: 123 mg/dL; aa1 Ranges: Intake: 0218 01:36 IV: 1000ml; Total: 1000ml. mg2 Outcome: 02:15 Discharge ordered by . jr8 02:22 Discharged to home ambulatory, with family. mg2 02:22 Condition: stable 02:22 Discharge instructions given to patient, family, Instructed on discharge instructions, follow up and referral plans. Demonstrated understanding of instructions, follow-up care. 02:27 Patient left the ED. mg2 Signatures: Dispatcher [employer] EDMS Thelma Yang, RN RN aa1 Liat Moreau Josh, PA PA jr8 Scarlet Sampson am2 Darvin Perales RN RN mg2
--- NOTE | 2018-08-02 02:16 | EDPHYS ---
Physician Documentation [facility] Name: Cristiana Dunn Age: 28 yrs Sex: Female : 1990 Arrival Date: 08/01/2018 Time: 22:20 Bed 27 Private MD: ED Physician Byron Overton HPI: 08/02 00:12 This 28 yrs old Female presents to ER via Wheelchair with complaints of jr8 Doesn't Feel Right, Syncope. 00:12 Onset: The symptoms/episode began/occurred acutely, today. Associated signs and jr8 symptoms: Pertinent positives: fatigue. Modifying factors: The patient symptoms are alleviated by nothing, the patient symptoms are aggravated by nothing. The patient has not experienced similar symptoms in the past. The patient has not recently seen a physician. Patient stated that she started to not feel well tonight. Went to try and use the bathroom. Called for and then passed out. Was out for about 5 min according to patient. Feeling better now but still fatigued. Denies chest pain or shortness of breath prior to episode or now . DIRECTOR OF ACADEMIC SUPPORT: 08/01 22:40 LMP 07/04/2018 aa1 Historical: - Allergies: 22:40 Iodinated Contrast Media - IV Dye; aa1 - Home Meds: 22:40 None [Active]; aa1 - PMHx: 22:40 None; aa1 - PSHx: 22:40 None; aa1 - Immunization history:: Flu vaccine is up to date. - Social history:: Smoking status: Patient/guardian denies using tobacco. - Ebola Screening: : No symptoms or risks identified at this time. ROS: 08/02 00:12 Eyes: Negative for injury, pain, redness, and discharge, ENT: Negative for injury, jr8 pain, and discharge, Neck: Negative for injury, pain, and swelling, Cardiovascular: Negative for chest pain, palpitations, and edema, Respiratory: Negative for shortness of breath, cough, wheezing, and pleuritic chest pain, Abdomen/GI: Negative for abdominal pain, nausea, vomiting, diarrhea, and constipation, Back: Negative for injury and pain, MS/Extremity: Negative for injury and deformity, Skin: Negative for injury, rash, and discoloration. Constitutional: Positive for fatigue. Neuro: Positive for syncope, Negative for altered mental status, dizziness, gait disturbance, headache, hearing loss, numbness, seizure activity, speech changes, tingling, tinnitus, tremor, visual changes, weakness. Exam: 00:12 Eyes: Pupils equal round and reactive to light, extra-ocular motions intact. Lids and jr8 lashes normal. Conjunctiva and sclera are non-icteric and not injected. Cornea within normal limits. Periorbital areas with no swelling, redness, or edema. ENT: Nares patent. No nasal discharge, no septal abnormalities noted. Tympanic membranes are normal and external auditory canals are clear. Oropharynx with no redness, swelling, or masses, exudates, or evidence of obstruction, uvula midline. Mucous membranes moist. Neck: Trachea midline, no thyromegaly or masses palpated, and no cervical lymphadenopathy. Supple, full range of motion without nuchal rigidity, or vertebral point tenderness. No Meningismus. Cardiovascular: Regular rate and rhythm with a normal S1 and S2. No gallops, murmurs, or rubs. Normal PMI, no JVD. No pulse deficits. Respiratory: Lungs have equal breath sounds bilaterally, clear to auscultation and percussion. No rales, rhonchi or wheezes noted. No increased work of breathing, no retractions or nasal flaring. Abdomen/GI: Soft, non-tender, with normal bowel sounds. No distension or tympany. No guarding or rebound. No evidence of tenderness throughout. Back: No spinal tenderness. No costovertebral tenderness. Full range of motion. Skin: Warm, dry with normal turgor. Normal color with no rashes, no lesions, and no evidence of cellulitis. MS/ Extremity: Pulses equal, no cyanosis. Neurovascular intact. Full, normal range of motion. Neuro: Awake and alert, GCS 15, oriented to person, place, time, and situation. Cranial nerves II-XII grossly intact. Motor strength 5/5 in all extremities. Sensory grossly intact. Cerebellar exam normal. Normal gait. Vital Signs: 08/01 22:40 BP 110 / 76; Pulse 89; Resp 18; Temp 98.6; Pulse Ox 100% on R/A; Weight 82 kg (R); aa1 Height 5 ft. 9 in. (175.26 cm); Pain 8/10; 23:53 BP 109 / 72; Pulse 79; Resp 18; Pulse Ox 100% on R/A; mg2 08/02 00:15 BP 112 / 61 Supine; Pulse 73; Resp 18; Pulse Ox 100% on R/A; mg2 00:15 BP 116 / 71 Sitting; Pulse 73; Resp 18; Pulse Ox 100% on R/A; mg2 00:15 BP 115 / 70 Standing; Pulse 78; Resp 18; Pulse Ox 100% on R/A; mg2 01:13 BP 116 / 74; Pulse 82; Resp 18; Pulse Ox 100% on R/A; mg2 02:13 BP 114 / 61; Pulse 81; Resp 18; Pulse Ox 100% on R/A; Pain /; mg2 08/01 22:40 Body Mass Index 26.70 (82.00 kg, 175.26 cm) aa1 MDM: 08/01 22:54 Patient medically screened. 08/02 02:13 Data reviewed: vital signs, nurses notes, lab test result(s), EKG, radiologic studies, [facility] plain films. Data interpreted: Pulse oximetry: on room air is 100 %. Interpretation: normal. Counseling: I had a detailed discussion with the patient and/or guardian regarding: the historical points, exam findings, and any diagnostic results supporting the discharge/admit diagnosis, lab results, radiology results, the need for outpatient follow up, a family practitioner, to return to the emergency department if symptoms worsen or persist or if there are any questions or concerns that arise at home. Response to treatment: the patient's symptoms have resolved after treatment. 08/01 23:57 Order name: Basic Metabolic Panel; Complete Time: 00:51 08/01 23:57 Order name: CBC with Diff; Complete Time: 00:41 08/01 23:57 Order name: LFT's; Complete Time: 00:51 08/01 23:57 Order name: Magnesium; Complete Time: 00:51 08/01 23:57 Order name: NT PRO-BNP; Complete Time: 00:51 08/01 23:57 Order name: PT-INR; Complete Time: 00:41 08/01 23:57 Order name: Troponin (emerg Dept Use Only); Complete Time: 00:51 08/01 23:57 Order name: XRAY Chest (1 view) 08/02 00:22 Order name: Urine Dipstick--Ancillary (enter results); Complete Time: 00:41 08/02 00:22 Order name: Urine --Ancillary (enter results); Complete Time: 00:41 08/01 23:57 Order name: EKG; Complete Time: 23:58 08/01 23:57 Order name: Cardiac monitoring; Complete Time: 00:08/01 23:57 Order name: EKG - Nurse/Tech; Complete Time: 00:08/01 23:57 Order name: IV Saline Lock; Complete Time: 00:08/01 23:57 Order name: Labs collected and sent; Complete Time: 00:08/01 23:57 Order name: O2 Per Protocol; Complete Time: 00:08/01 23:57 Order name: O2 Sat Monitoring; Complete Time: 00:08/01 23:57 Order name: Orthostatics; Complete Time: 00:08/01 23:57 Order name: Urine Test (obtain specimen); Complete Time: 00:08/01 23:57 Order name: Urine Dipstick-Ancillary (obtain specimen); Complete Time: : Administered Medications: 00:14 Drug: NS 0.9% 1000 ml Route: IV; Rate: 1000 ml; Site: right antecubital; mg2 01:36 Follow up: Response: No adverse reaction; IV Status: Completed infusion; IV Intake: mg2 1000ml 01:07 Drug: Zofran 4 mg Route: IVP; Site: right antecubital; mg2 01:34 Follow up: Response: No adverse reaction; Marked relief of symptoms mg2 01:08 Drug: fentaNYL (PF) 50 mcg Route: IVP; Site: right antecubital; mg2 01:35 Follow up: Response: No adverse reaction; Marked relief of symptoms mg2 Point of Care Testing: Blood Glucose: 08/01 22:40 Blood Glucose: 123 mg/dL; aa1 Ranges: Critical Glucose Levels:Adult <50 mg/dl or >400 mg/dl <40 mg/dl or >180 mg/dl Disposition: 08/02 02:46 Co-signature as Attending Physician, Byron Overton MD. pkl Disposition: 08/02/18 02:15 Discharged to Home. Impression: Syncope and collapse. - Condition is Stable. - Discharge Instructions: Syncope. - Medication Reconciliation Form, Thank You Letter, Antibiotic Education, Prescription Opioid Use, Family Work Release form. - Follow up: Private Physician; When: 1 - 2 days; Reason: Recheck today's complaints, Continuance of care, Re-evaluation by your physician. - Problem is new. - Symptoms are resolved. Signatures: Dispatcher [employer] [facility] Thelma Yang RN RN aa1 Byron Overton MD MD pkFernando Alvarez PA PA jr8 Darvin Perales RN RN mg2 Corrections: (The following items were deleted from the chart) 02:00 00:17 Stone Protocol+CT.RAD.BRZ ordered. [facility] 02:27 02:15 08/02/2018 02:15 Discharged to Home. Impression: Syncope and collapse. Condition mg2 is Stable. Forms are Medication Reconciliation Form, Thank You Letter, Antibiotic Education, Prescription Opioid Use. Follow up: Private Physician; When: 1 - 2 days; Reason: Recheck today's complaints, Continuance of care, Re-evaluation by your physician. Problem is new. Symptoms are resolved. jr8
--- NOTE | 2018-08-02 07:54 | RAD REPORT ---
EXAM DESCRIPTION: Aruna Single View08/02/2018 12:46 am CLINICAL HISTORY: Chest pain COMPARISON: none FINDINGS: The lungs appear clear of acute infiltrate. The heart is normal size IMPRESSION: No acute abnormalities displayed
--- NOTE | 2018-08-02 08:51 | EKG ---
Test Date: 2018-08-02 Test Time: 00:02:01 Consumer Experience Consultant: MEASUREMENT RESULTS: Intervals: Rate: 78 TN: 168 QRSD: 88 QT: 374 QTc: 426 [place]: P: 49 TN: 168 QRS: 82 T: 50 INTERPRETIVE STATEMENTS: Normal sinus rhythm Normal ECG No previous ECG available for comparison Electronically Signed On 08-02-18 08:51:00 CERTIFIED CONTROL SYSTEMS TECHNICIAN by Stanford Moran
== END 2018-08-02 02:27 | disposition home or self-care (01) ==
LOC: ER 22:19
DX: R55 Syncope and collapse (principal); R53.83 Other fatigue; Z91.041 Radiographic dye allergy status
CPT/HCPCS: 36415; 71045; 80048; 80076; 81003; 81025; 82962; 83735; 83880; 84484; 85025; 85610; 93005; 96361; 96374; 96375; 99284; J2405; J3010; J7030

== ENCOUNTER 2018-08-06 22:22 | Emergency (ER) | payer SELFPAY ==
--- OUTSIDE RECORDS SUMMARY | 2018-08-06 22:24 | XMS REPORT | Continuity of Care Document ---
:1990 Author Organization Interface Problems Problem Status Onset Classification Date Comments Source Date Reported Discharge 05/30/20 06/02/2017 Diagnosis: Acute 17 [facility] head injury Discharge 05/30/20 06/02/2017 Diagnosis: Brain [facility] HEAD PAIN Active 05/30/20 [facility] Discharge 06/16/19 06/19/2016 Diagnosis: 17 [facility] Abdominal pain during OTHER Active 06/16/[address] Gastroenteritis Resolved Problem 06/02/2017 [facility] Medications Medication Details Route Status Patient Ordering Order Source Instructions Provider Date Acetaminophen 650 mg, 2 Inactive tab, 017 Route: PO, Drug form: TAB, ONCE, Dosing Weight 82.727, kg, Priority: STAT, Start date: 05/30/17 22:10:00 RN CARE TRANSITION, Stop date: 05/30/17 22:10:00 CSTNotes: Do not exceed 4 gm/day. (Same as: Tylenol) Saline Flush 10 mL, Inactive 0.9% Route: [facility] IVP, Drug Form: INJ, kg, PRN, PRN Line Flush, Start date: 06/16/16 16:50:00 RN CARE TRANSITION, Duration: 30 day, Stop date: 07/16/16 16:49:00 CSTNotes: (Same as: BD Posiflush) Allergies, Adverse Reactions, Alerts Substance Category Reaction Severity Reaction Status Date Comments Source type Reported contrast Assertion Drug Active media allergy [facility] (iodine-bas ed) Immunizations Immunization Date Given Site Status Last Updated Comments Source Results Order Name Results Value Reference Date Interpretation Comments Source Range Brain wo Brain wo Clinical Indication: ct dlp: 981.61 mgy-cm - head injury, blurred vision, dizziness, Pt reports heavy crates falling on her head while at work today @1500; no loc; no obvious injury, reports pain to top of head.; - contrast contrast CT /2016 - [facility] CT Comparison: None Read by: Raymundo Thrasher MD Dictated Date/time: 05/30/17 17:46 TECHNIQUE: CT images were obtained from the foramen magnum to the vertex without the use of intravenous contrast on a multidetector CT. Coronal and sagittal reconstructions were obtained. Electronically Signed by: Raymundo Thrasher MD 05/30/17 17:[address] radiation dose DLP: 981.61 mGy-cm FINDINGS: BRAIN PARENCHYMA: There are normal altman-white interfaces, sulci and gyri. There are no focal mass lesions on this noncontrast head CT. There is no mass effect, midline shift or edema. There are no intra -axial or extra-axial fluid collections, intraventricular or intraparenchymal hemorrhage. The pineal, sellar, brainstem, cerebellum and skull base regions appear unremarkable. VENTRICLES: The lateral ventricles, third and fourth ventricles appear unremarkable. The basilar cisterns are normal. ORBITS, MASTOIDS AND PARANASAL SINUSES: The visualized orbits and paranasal sinuses are unremarkable. The mastoid air cells are clear. SKULL: There are no osseous abnormalities. If there is further concern for intracranial pathology or acute stroke, MRI of the brain may be performed for complete assessment. IMPRESSION: Unremarkable noncontrast head CT with no mass, hemorrhage or subacute stroke. SL: WR4-M BLOOD BANK ABO/Rh A POS 06/17 /2016 [facility] ELECTROLYT AGAP 13.4 meq/L 10.0 - 06/17 ES 20.0 [facility] ELECTROLYT A/G Ratio 0.8 0.7 - 1.6 06/17 [facility] ELECTROLYT B/C Ratio 12 6 - 25 06/17 [facility] ELECTROLYT Globulin 4.3 g/dL 2.7 - 4.2 06/17 [facility] ELECTROLYT eGFR 135 06/17 Result Comment: The eGFR is calculated using the CKD-EPI formula. In most young, healthy individuals the eGFR will be >90 mL/ min/1.73m2. The eGFR declines with age. An eGFR of 60-89 may be normal in mL/min/1. /2016 some populations, particularly the elderly, for whom the CKD-EPI formula has not been extensively validated. Use of the eGFR is not recommended in the following populations: [address] Individuals with unstable creatinine concentrations, including patients and those with serious co-morbid conditions. Patients with extremes in muscle mass or diet. The data above are obtained from the National Kidney Disease Education Program (NKDEP) which additionally recommends that when the eGFR is used in patients with extremes of body mass index for purposes of drug dosing, the eGFR should be multiplied by the estimated BMI. ELECTROLYT Alk Phos 53 unit/L 39 - 136 06/17 [facility] ELECTROLYT Bili Total 0.3 mg/dL 0.2 - 1.3 06/17 [facility] ELECTROLYT ALT 30 unit/L 0 - 65 06/17 [facility] ELECTROLYT AST 15 unit/L 0 - 37 06/17 [facility] ELECTROLYT BUN 6 mg/dL 7 - 22 06/17 [facility] ELECTROLYT Chloride Lvl 102 meq/L 95 - 109 06/17 [facility] ELECTROLYT Potassium 3.4 meq/L 3.5 - 5.1 06/17 ES Lvl [facility] ELECTROLYT Sodium Lvl 136 meq/L 135 - 145 06/17 [facility] ELECTROLYT Creatinine 0.50 mg/dL 0.50 - 06/17 ES Lvl 1.40 [facility] ELECTROLYT Albumin Lvl 3.6 g/dL 3.5 - 5.0 06/17 [facility] ELECTROLYT Total 7.9 g/dL 6.4 - 8.4 06/17 [facility] ELECTROLYT Calcium Lvl 9.0 mg/dL 8.5 - 10.5 06/17 [facility] ELECTROLYT CO2 24 meq/L 24 - 32 06/17 [facility] ELECTROLYT Glucose Lvl 74 mg/dL 70 - 99 06/17 [facility] [place] [id number] 06/17 OGY mIU/mL [facility] HEMATOLOGY Eosinophils 0.8 % 0.0 - 4.0 06/17 [facility] HEMATOLOGY Basophils 0.3 % 0.0 - 1.0 06/17 [facility] HEMATOLOGY Lymphocytes 28.9 % 20.0 - 06/17 40.0 [facility] HEMATOLOGY Monocytes 8.4 % 2.0 - 12.0 06/17 [facility] HEMATOLOGY Lymphocytes 1.8 K/CMM 1.0 - 5.5 06/17 # /2017 [facility] HEMATOLOGY Monocytes # 0.5 K/CMM 0.0 - 0.8 06/17 [facility] HEMATOLOGY Eosinophils 0.1 K/CMM 0.0 - 0.5 06/17 MH # /2017 [facility] HEMATOLOGY Basophils # 0.0 K/CMM 0.0 - 0.2 06/17 [facility] HEMATOLOGY Segs-Bands # 3.8 K/CMM 1.5 - 8.1 06/17 [facility] HEMATOLOGY Segs 61.6 % 45.0 - 06/17 MH 75.0 /2016 [facility] HEMATOLOGY MPV 7.3 fL 7.4 - 10.4 06/17 [facility] HEMATOLOGY RDW 12.7 % 11.5 - 06/17 MH 14.5 /2016 [facility] HEMATOLOGY Platelet 398 K/CMM 133 - 450 06/17 [facility] HEMATOLOGY MCHC 32.4 g/dL 32.0 - 06/17 MH 36.0 /2016 [facility] HEMATOLOGY MCV 86.7 fL 80.0 - 06/17 98.0 /2016 [facility] MCH 28.1 pg 27.0 - 06/17 31.0 [facility] HEMATOLOGY Hct 32.7 % 36.0 - 06/17 MH 48.0 /2016 [facility] HEMATOLOGY Hgb 10.6 g/dL 12.0 - 06/17 MH 16.0 [facility] HEMATOLOGY RBC 3.78 M/CMM 4.20 - 06/17 5.40 /2016 [facility] HEMATOLOGY WBC 6.3 K/CMM 3.7 - 10.4 06/17 [facility] URINE AND UA Color Katelynn 06/17 [facility] URINE AND UA <=1.0 0.1 - 1.0 06/17 [facility] Urobilinogen mg/dL /2016 [facility] URINE AND UA Turbidity Slight Clear 06/17 STOOL [facility] *ABN* (06/16/16 6:10 PM) URINE AND UA Spec Grav 1.027 <=1.030 06/17 [facility] URINE AND UA pH 5.0 5.0 - 8.0 06/17 [facility] URINE AND UA WBC 3 /HPF 0 - 5 06/17 STOOL [facility] URINE AND UA RBC 3 /HPF 0 - 2 06/17 [facility] URINE AND UA Protein Negative Negative 06/17 [facility] mg/dL mg/dL [facility] URINE AND UA Glucose Negative Negative 06/17 [facility] mg/dL mg/dL [facility] URINE AND UA Ketones Negative Negative 06/17 [facility] mg/dL mg/dL [facility] URINE AND UA Nitrite Negative Negative 06/17 [facility] /2016 [facility] (06/16/16 6:10 PM) URINE AND UA Leuk Est Negative Negative 06/17 STOOL [facility] (06/16/16 6:10 PM) URINE AND UA Sq Epi Many /LPF Few /LPF 06/17 STOOL [facility] URINE AND UA Bacteria Occasional None Seen 06/17 [facility] /HPF /HPF /2016 [facility] URINE AND UA Mucus Many /LPF None Seen 06/17 [facility] /LPF /2016 [facility] URINE AND UA Blood Negative Negative 06/17 [facility] (06/16/16 6:10 PM) URINE AND UA Bili Negative Negative 06/17 STOOL [facility] *NA* (06/16/16 6:10 PM) Vital Signs Vital Sign Value Date Comments Source Temperature Oral (F) 98.4 F 05/31/2017 [facility] Systolic (mm Hg) 113 05/31/2017 [facility] Diastolic (mm Hg) 60 05/31/2017 [facility] Respitory Rate 16 05/31/2017 [facility] Heart Rate 73 05/31/2017 [facility] Height 175.26 cm 05/30/2017 [facility] Weight 82.727 05/30/2017 [facility] Temperature Oral (F) 99.3 F 05/30/2017 [facility] Heart Rate 76 05/30/2017 [facility] Respitory Rate 18 05/30/2017 [facility] BMI Calculated 26.93 05/30/2017 [facility] Systolic (mm Hg) 102 05/30/2017 [facility] Diastolic (mm Hg) 69 05/30/2017 [facility] Heart Rate 82 06/17/2016 [facility] Diastolic (mm Hg) 72 06/17/2016 [facility] Systolic (mm Hg) 119 06/17/2016 [facility] Respitory Rate 16 06/17/2016 [facility] Height 175.26 cm 06/16/2016 [facility] Weight 83.182 06/16/2016 [facility] BMI Calculated 27.08 06/16/2016 [facility] Temperature Oral (F) 98.7 F 06/16/2016 [facility] Respitory Rate 18 06/16/2016 [facility] Heart Rate 82 06/16/2016 [facility] Systolic (mm Hg) 114 06/16/2016 [facility] Diastolic (mm Hg) 72 06/16/2016 [facility] Encounters Location Location Encounter Encounter Reason Attending ADM DC Status Source Details Type Number For Provider Date Date [facility] [id number] Rena 06/16 06/17 KRISTEN Alcaraz /2016 [facility] [id number] Kelly 05/30 05/31 KRISTEN Grimm [facility] Procedures Procedure Code Date Perfomer Comments Source
--- OUTSIDE RECORDS SUMMARY | 2018-08-06 22:25 | XMS REPORT ---
:1990 [facility] [address] [place] [address] Dr. Paniagua. [address] [place] [address] Care Team Providers Name Role Phone DAKOTA REES Primary Care Provider Unavailable DAKOTA REES Unavailable Unavailable Problems This patient has no known problems. Allergies, Adverse Reactions, Alerts This patient has no known allergies or adverse reactions. Medications This patient has no known medications. Encounters Start End Encounter Admission Attending Care Care Encounter Date/Time Date/Time Type Type Clinicians Facility Department ID 2016-11-13 2016-11-13 Outpatient [facility] [id number] 00:01:00 00:01:00 2016-10-31 2016-10-31 Emergency [facility] [id number] 03:03:00 03:03:00 2016-10-23 2016-10-23 Outpatient [facility] [id number] 09:10:00 09:10:00 Results Test Description Test Time [...] 140-440 MPV (test code=MPV) 7.7 fL RPR, [id number] 03:18:00 Test Item Value Reference Range Comments RPR (test code=RPR) Non-Reactive Non-Reactive Lactate [id number] 01:06:00 Test Item Value Reference Range Comments LDH (test code=LDH) 144 U/L 135-214 Hemogram [id number] 01:03:00 Test Item Value Reference Range Comments [...] MPV (test code=MPV) 8.1 fL Comprehensive Metabolic [id number] 00:51:00 Test Item Value Reference Range Comments [...] race is not provided, and the patient isAfrican-Monegasque, multiply by 1.212. If sex is not provided, and thepatient is female, multiply by 0.742. Results for patients <18 years ofage have not been validated by the MDRD study and should be interpretedwith caution.eGFR Result Interpretation:eGFR > or=60 is in the Normal RangeeGFR < 60 may mean kidney diseaseeGFR < 15 may mean kidney failureRanges recommended by the National Kidney Foundation,http://nkdep.nih .gov Uric [id number] 00:51:00 Test Item Value Reference Range Comments Uric Acid (test code=UA) 3.6 mg/dL 2.4-5.7 Protein, Urine [id number] 00:50:00 Test Item Value Reference Range Comments TP, Urine (test code=TPURRM) 22.9 mg/dL Creatinine, Urine [id number] 00:50:00 Test Item Value Reference Range Comments Creatinine, Urine Rm (test code=CREURRM) 73.8 mg/dL 10.0-300.0 Blood [id number] 23:20:00 Test Item Value Reference Range Comments [...] (test 0 code=RESP RATE) Hep B Surface [id number] 14:37:00 Test Item Value Reference Range Comments Hep Bs Ag (test code=HBSAG) Nonreactive Non-Reactive CBC LD with [id number] 14:13:00 Test Item Value Reference Range Comments [...] Lymph Abs (test code=ALYMPH) 1.7 K/cumm 0.5-4.6 [place] Abs (test code=AMONO) 0.8 K/cumm 0.0-1.2 Eos Abs (test code=AEOS) 0.1 K/cumm 0.0-0.7 Baso Abs (test code=ABASO) 0.0 K/cumm 0.0-0.2 Chlamydia/GC [id number] 14:11:00 Test Item Value Reference Range Comments Chlamydia trachomatis, CATHLEEN (test rykl=902160) Negative Negative Neisseria gonorrhoeae, CATHLEEN (test mqde=[id number]) Negative Negative Culture, Vaginal Strep [id number] 08:34:00Specimen: VaginaCollected: 10/12 19:39 Status: Final Last Updated: 10/16/2016 08:39 Culture Result ( Final) (Final) 10/15/16 No Group B Strep isolated at 24 hours 10/16/16 No Group B Strep isolated at 48 hoursCulture, [id number] 07:48:00Specimen: UrineCollected: 10/12/2016 18:21 Status: Final Last Updated: 10/15/2016 07: 48 Culture Result (Final) (Final) 10/14/16 <10,000 CFU/mL Gamma Hemolytic StreptococcusRPR, [id number] 03:18:00 Test Item Value Reference Range Comments RPR (test code=RPR) Non-Reactive Non-Reactive Rubella [id number] 03:18:00 Test Item Value Reference Range Comments Rubella IgG (test code=RUBELIGG) Immune Immune HIV [id number] 22:59:00 Test Item Value Reference Range Comments HIV 1/2 Antibody (test Non-Reactive Non-Reactive HIV1/2 Antibody screen result code=HIV1/2AB) indicates the absence of HIV1 and YKW6vdpecfwee.However, A Non-Reactive screen result does not rule [...] RNA Quantitative is recommended. Antibody Screen - [id number] 21:23:00 Test Item Value Reference Range Comments Antibody Screen (test code=ABSCR) Negative Blood Type and [id number] 21:22:00 Test Item Value Reference Range Comments ABO type (test code=ABO) A Rh Type (test code=RH) Positive Hep B Surface [id number] 21:06:00 Test Item Value Reference Range Comments Hep Bs Ag (test code=HBSAG) Nonreactive Non-Reactive Comprehensive Metabolic [id number] 20:56:00 Test Item Value Reference Range Comments [...] race is not provided, and the patient isAfrican-Monegasque, multiply by 1.212. If sex is not provided, and thepatient is female, multiply by 0.742. Results for patients <18 years ofage have not been validated by the MDRD study and should be interpretedwith caution.eGFR Result Interpretation:eGFR > or=60 is in the Normal RangeeGFR < 60 may mean kidney diseaseeGFR < 15 may mean kidney failureRanges recommended by the National Kidney Foundation,http://nkdep.nih .gov [id number] 20:56:00 Test Item Value Reference Range Comments [...] code=PROPOX) THC (test code=THC) Negative Negative Urinalysis [id number] 20:46:00 Test Item Value Reference Range Comments Color (test code=COLOR) Yellow Yellow,Straw,Pl yellow Clarity (test code=CLAR) Clear Clear Specific [place] (test code=SPGR) 1.007 1.001-1.035 pH (test code=PH) [...] (test code=MEXAM) Not indicated CBC LD with [id number] 20:40:00 Test Item Value Reference Range Comments [...] Lymph Abs (test code=ALYMPH) 1.7 K/cumm 0.5-4.6 [place] Abs (test code=AMONO) 0.6 K/cumm 0.0-1.2 Eos Abs (test code=AEOS) 0.1 K/cumm 0.0-0.7 Baso Abs (test code=ABASO) 0.0 K/cumm 0.0-0.2
[2018-08-07] MEDS ORDERED: KETOROLAC 30 MG/ML INJ ONE (00:03)
[2018-08-07] MEDS ORDERED: NA CHLORIDE 0.9% 1,000 ML ONE (00:04)
[2018-08-07 00:07] LABS: Absolute Lymphocytes (CBC) 1.1 K/uL (0.7-4.9); Absolute Monocytes 0.4 K/uL (0.1-1.3); Absolute Neutrophil 7.9 K/uL (1.8-8.0); Basophils % 0.4 % (0-1.3); Eosinophils % 0.1 % (0-4.4); Hematocrit 39.9 % (36.0-45.0); Lymphocytes % 11.5 % (15.3-44.8); MPV 7.5 fL (7.6-11.3); Monocytes % 4.3 % (3.3-12.3); RBC Red Blood Cell Count 4.72 M/uL (3.86-4.86)
[2018-08-07 00:22] LABS: Potassium 3.6 mmol/L (3.5-5.1); Troponin I 0.02 ng/mL (0.0-0.045)
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
[2018-08-07] MEDS ORDERED: CEFTRIAXONE/SWI 1gm 1 GM/10 ML SYR ONE (01:20)
[2018-08-07 01:37] LABS: Urine Blood 2+ (NEG); Urine Glucose NEGATIVE (NEG); Urine Protein 1+ (NEG); Urine pH 7.5 (5.0-7.0)
[2018-08-07 01:41] LABS: Urine Culture Reflex Order NOT NEEDED
[2018-08-07 01:48] LABS: Urine Bacteria LOADED /HPF (<20); Urine RBC <5 /HPF (NONE SEEN)
--- NOTE | 2018-08-07 08:54 | EKG ---
Test Date: 2018-08-06 Test Time: 22:55:46 [employer] Solutions Architect: ALOK MEASUREMENT RESULTS: Intervals: Rate: 113 NJ: 170 QRSD: 88 QT: 324 QTc: 444 [place] English: P: 75 NJ: 170 QRS: 83 T: 37 INTERPRETIVE STATEMENTS: Sinus tachycardia Nonspecific T wave abnormality Abnormal ECG Compared to ECG 08/02/2018 00:02:01 T-wave abnormality now present Sinus rhythm no longer present Electronically Signed On 08-07-18 08:53:01 ICE PULLER by Stanford Moran
--- NOTE | 2018-08-07 10:51 | RAD REPORT ---
EXAM DESCRIPTION: RAD - Chest Single View - 08/07/2018 12:19 am CLINICAL HISTORY: CHEST PAIN Chest pain. COMPARISON: Chest Single View dated 08/02/2018 FINDINGS: Portable technique limits examination quality. The lungs are grossly clear. The heart is normal in size. No displaced fractures. IMPRESSION: No acute intrathoracic process suspected.
== END 2018-08-07 01:22 | disposition home or self-care (01) ==
LOC: ER 22:22
DX: R07.89 Other chest pain (principal); N39.0 Urinary tract infection, site not specified; Z91.041 Radiographic dye allergy status
CPT/HCPCS: 36415; 71045; 80048; 81003; 81015; 81025; 82550; 84484; 85025; 87077; 87086; 87088; 87186; 93005; 96374; 96375; 99283; J0696; J7030

== ENCOUNTER 2018-09-02 18:39 | Emergency (ER) | payer OTHER ==
--- OUTSIDE RECORDS SUMMARY | 2018-09-02 18:41 | XMS REPORT | Continuity of Care Document ---
:1990 Author Organization Interface Problems Problem Status Onset Classification Date Comments Source Date Reported Discharge 05/30/20 06/02/2017 Diagnosis: Acute 17 [facility] head injury Discharge 05/30/20 06/02/2017 Diagnosis: Brain 17 [facility] conc[facility] HEAD PAIN Active 05/30/20 17 [facility] Discharge 06/16/19 06/19/2016 Diagnosis: 17 [facility] Abdominal pain during OTHER Active 06/16/[address] Gastroenteritis Resolved Problem 06/02/2017 [facility] Medications Medication Details Route Status Patient Ordering Order Source Instructions Provider Date Acetaminophen 650 mg, 2 Inactive tab, 017 Route: PO, Drug form: TAB, ONCE, Dosing Weight 82.727, kg, Priority: STAT, Start date: 05/30/17 22:10:00 BIOTECHNICIAN, Stop date: 05/30/17 22:10:00 CSTNotes: Do not exceed 4 gm/day. (Same as: Tylenol) Saline Flush 10 mL, Inactive 0.9% Route: [facility] IVP, Drug Form: INJ, kg, PRN, PRN Line Flush, Start date: 06/16/16 16:50:00 BIOTECHNICIAN, Duration: 30 day, Stop date: 07/16/16 16:49:00 CSTNotes: (Same as: BD Posiflush) Allergies, Adverse Reactions, Alerts Substance Category Reaction Severity Reaction Status Date Comments Source type Reported contrast Assertion Drug Active media allergy [facility] (iodine-bas ed) Immunizations Immunization Date Given Site [...] head.; - contrast contrast CT /2016 - [facility] CT Comparison: None Read by: Raymundo Thrasher [...] BLOOD BANK ABO/Rh A POS 06/17 /2016 [facility] ELECTROLYT AGAP 13.4 meq/L 10.0 - 06/17 ES 20.0 [facility] ELECTROLYT A/G Ratio 0.8 0.7 - 1.6 06/17 [facility] ELECTROLYT B/C Ratio 12 6 - 25 06/17 [facility] ELECTROLYT Globulin 4.3 g/dL 2.7 - 4.2 06/17 [facility] ELECTROLYT eGFR 135 06/17 Result Comment: The [...] is not recommended in the following populations: [address] Individuals with unstable creatinine concentrations, including [...] Phos 53 unit/L 39 - 136 06/17 [facility] ELECTROLYT Bili Total 0.3 mg/dL 0.2 - 1.3 06/17 [facility] ELECTROLYT ALT 30 unit/L 0 - 65 06/17 [facility] ELECTROLYT AST 15 unit/L 0 - 37 06/17 [facility] ELECTROLYT BUN 6 mg/dL 7 - 22 06/17 [facility] ELECTROLYT Chloride Lvl 102 meq/L 95 - 109 06/17 [facility] ELECTROLYT Potassium 3.4 meq/L 3.5 - 5.1 06/17 ES Lvl [facility] ELECTROLYT Sodium Lvl 136 meq/L 135 - 145 06/17 [facility] ELECTROLYT Creatinine 0.50 mg/dL 0.50 - 06/17 ES Lvl 1.40 [facility] ELECTROLYT Albumin Lvl 3.6 g/dL 3.5 - 5.0 06/17 [facility] ELECTROLYT Total 7.9 g/dL 6.4 - 8.4 06/17 [facility] ELECTROLYT Calcium Lvl 9.0 mg/dL 8.5 - 10.5 06/17 [facility] ELECTROLYT CO2 24 meq/L 24 - 32 06/17 [facility] ELECTROLYT Glucose Lvl 74 mg/dL 70 - 99 06/17 [facility] [place] [id number] 06/17 OGY mIU/mL [facility] HEMATOLOGY Eosinophils 0.8 % 0.0 - 4.0 06/17 [facility] HEMATOLOGY Basophils 0.3 % 0.0 - 1.0 06/17 [facility] HEMATOLOGY Lymphocytes 28.9 % 20.0 - 06/17 40.0 [facility] HEMATOLOGY Monocytes 8.4 % 2.0 - 12.0 06/17 [facility] HEMATOLOGY Lymphocytes 1.8 K/CMM 1.0 - 5.5 06/17 # /2017 [facility] HEMATOLOGY Monocytes # 0.5 K/CMM 0.0 - 0.8 06/17 [facility] HEMATOLOGY Eosinophils 0.1 K/CMM 0.0 - 0.5 06/17 MH # /2017 [facility] HEMATOLOGY Basophils # 0.0 K/CMM 0.0 - 0.2 06/17 [facility] HEMATOLOGY Segs-Bands # 3.8 K/CMM 1.5 - 8.1 06/17 [facility] HEMATOLOGY Segs 61.6 % 45.0 - 06/17 MH 75.0 /2016 [facility] HEMATOLOGY MPV 7.3 fL 7.4 - 10.4 06/17 [facility] HEMATOLOGY RDW 12.7 % 11.5 - 06/17 MH 14.5 /2016 [facility] HEMATOLOGY Platelet 398 K/CMM 133 - 450 06/17 [facility] HEMATOLOGY MCHC 32.4 g/dL 32.0 - 06/17 MH 36.0 /2016 [facility] HEMATOLOGY MCV 86.7 fL 80.0 - 06/17 98.0 /2016 [facility] MCH 28.1 pg 27.0 - 06/17 31.0 [facility] HEMATOLOGY Hct 32.7 % 36.0 - 06/17 MH 48.0 /2016 [facility] HEMATOLOGY Hgb 10.6 g/dL 12.0 - 06/17 MH 16.0 [facility] HEMATOLOGY RBC 3.78 M/CMM 4.20 - 06/17 5.40 /2016 [facility] HEMATOLOGY WBC 6.3 K/CMM 3.7 - 10.4 06/17 [facility] URINE AND UA Color Katelynn 06/17 [facility] URINE AND UA <=1.0 0.1 - 1.0 06/17 STOOL Urobilinogen mg/dL /2016 [facility] URINE AND UA Turbidity Slight Clear 06/17 STOOL [facility] *ABN* (06/16/16 6:10 PM) URINE AND UA Spec Grav 1.027 <=1.030 06/17 [facility] URINE AND UA pH 5.0 5.0 - 8.0 06/17 STOOL [facility] URINE AND UA WBC 3 /HPF 0 - 5 06/17 STOOL [facility] URINE AND UA RBC 3 /HPF 0 - 2 06/17 [facility] URINE AND UA Protein Negative Negative 06/17 [facility] mg/dL mg/dL [facility] URINE AND UA Glucose Negative Negative 06/17 [facility] mg/dL mg/dL [facility] URINE AND UA Ketones Negative Negative 06/17 [facility] mg/dL mg/dL [facility] URINE AND UA Nitrite Negative Negative 06/17 [facility]OOL /2016 [facility] (06/16/16 6:10 PM) URINE AND UA Leuk Est Negative Negative 06/17 STOOL [facility] (06/16/16 6:10 PM) URINE AND UA Sq Epi Many /LPF Few /LPF 06/17 STOOL [facility] URINE AND UA Bacteria Occasional None Seen 06/17 [facility] /HPF /HPF /2016 [facility] URINE AND UA Mucus Many /LPF None Seen 06/17 [facility]OOL /LPF /2016 [facility] URINE AND UA Blood Negative Negative 06/17 STOOL [facility] (06/16/16 6:10 PM) URINE AND UA Bili Negative Negative 06/17 STOOL [facility] *NA* (06/16/16 6:10 PM) Vital Signs Vital Sign Value Date Comments Source Temperature Oral (F) 98.4 F 05/31/2017 [facility] Systolic (mm Hg) 113 05/31/2017 [facility] Diastolic (mm Hg) 60 05/31/2017 [facility] Respitory Rate 16 05/31/2017 [facility] Heart Rate 73 05/31/2017 [facility] Height 175.26 cm 05/30/2017 [facility] Weight 82.727 05/30/2017 [facility] Temperature Oral (F) 99.3 F 05/30/2017 [facility] Heart Rate 76 05/30/2017 [facility] Respitory Rate 18 05/30/2017 [facility] BMI Calculated 26.93 05/30/2017 [facility] Systolic (mm Hg) 102 05/30/2017 [facility] Diastolic (mm Hg) 69 05/30/2017 [facility] Heart Rate 82 06/17/2016 [facility] Diastolic (mm Hg) 72 06/17/2016 [facility] Systolic (mm Hg) 119 06/17/2016 [facility] Respitory Rate 16 06/17/2016 [facility] Height 175.26 cm 06/16/2016 [facility] Weight 83.182 06/16/2016 [facility] BMI Calculated 27.08 06/16/2016 [facility] Temperature Oral (F) 98.7 F 06/16/2016 [facility] Respitory Rate 18 06/16/2016 [facility] Heart Rate 82 06/16/2016 [facility] Systolic (mm Hg) 114 06/16/2016 [facility] Diastolic (mm Hg) 72 06/16/2016 [facility] Encounters Location Location Encounter Encounter Reason Attending ADM DC Status Source Details Type Number For Provider Date Date [facility] [id number] Rena 06/16 06/17 KRISTEN Alcaraz /2016 [facility] [id number] Kelly 05/30 05/31 KRISTEN Grimm [facility] Procedures Procedure Code Date Perfomer Comments Source
--- OUTSIDE RECORDS SUMMARY | 2018-09-02 18:42 | XMS REPORT ---
:1990 Author Organization [facility] Address [address] [place] [address] [address] [place] [address] Care Team Providers Name Role Phone DAKOTA REES Primary Care Provider Unavailable DAKOTA REES Unavailable Unavailable Problems This patient has no known problems. Allergies, Adverse Reactions, Alerts This patient has no known allergies or adverse reactions. Medications This patient has no known medications. Encounters Start End Encounter Admission Attending Care Care Encounter Date/Time Date/Time Type Type Clinicians Facility Department ID 2016-11-13 2016-11-13 Outpatient [facility] [id number] 00:01:00 00:01:00 2016-10-31 2016-10-31 Emergency [facility] [id number] 03:03:00 03:03:00 2016-10-23 2016-10-23 Outpatient [facility] [id number] 09:10:00 09:10:00 Results Test Description Test Time [...] 140-440 MPV (test code=MPV) 7.7 fL RPR, [id number] 03:18:00 Test Item Value Reference Range Comments RPR (test code=RPR) Non-Reactive Non-Reactive Lactate [id number] 01:06:00 Test Item Value Reference Range Comments LDH (test code=LDH) 144 U/L 135-214 Hemogram [id number] 01:03:00 Test Item Value Reference Range Comments [...] MPV (test code=MPV) 8.1 fL Comprehensive Metabolic [id number] 00:51:00 Test Item Value Reference Range Comments [...] race is not provided, and the patient isAfrican-[place], multiply by 1.212. If sex is not provided, and thepatient is female, multiply by 0.742. Results for patients <18 years ofage have not been validated by the MDRD study and should be interpretedwith caution.eGFR Result Interpretation:eGFR > or=60 is in the Normal RangeeGFR < 60 may mean kidney diseaseeGFR < 15 may mean kidney failureRanges recommended by the National Kidney Foundation,http://nkdep.nih .gov Uric [id number] 00:51:00 Test Item Value Reference Range Comments Uric Acid (test code=UA) 3.6 mg/dL 2.4-5.7 Protein, Urine [id number] 00:50:00 Test Item Value Reference Range Comments TP, Urine (test code=TPURRM) 22.9 mg/dL Creatinine, Urine [id number] 00:50:00 Test Item Value Reference Range Comments Creatinine, Urine Rm (test code=CREURRM) 73.8 mg/dL 10.0-300.0 Blood [id number] 23:20:00 Test Item Value Reference Range Comments [...] (test 0 code=RESP RATE) Hep B Surface [id number] 14:37:00 Test Item Value Reference Range Comments Hep Bs Ag (test code=HBSAG) Nonreactive Non-Reactive CBC LD with [id number] 14:13:00 Test Item Value Reference Range Comments [...] Lymph Abs (test code=ALYMPH) 1.7 K/cumm 0.5-4.6 [place] Abs (test code=AMONO) 0.8 K/cumm 0.0-1.2 Eos Abs (test code=AEOS) 0.1 K/cumm 0.0-0.7 Baso Abs (test code=ABASO) 0.0 K/cumm 0.0-0.2 Chlamydia/GC [id number] 14:11:00 Test Item Value Reference Range Comments Chlamydia trachomatis, CATHLEEN (test swoy=179004) Negative Negative Neisseria gonorrhoeae, CATHLEEN (test qkfw=459763) Negative Negative Culture, Vaginal Strep [id number] 08:34:00Specimen: VaginaCollected: 10/12 19:39 Status: Final Last Updated: 10/16/2016 08:39 Culture Result ( Final) (Final) 10/15/16 No Group B Strep isolated at 24 hours 10/16/16 No Group B Strep isolated at 48 hoursCulture, [id number] 07:48:00Specimen: UrineCollected: 10/12/2016 18:21 Status: Final Last Updated: 10/15/2016 07: 48 Culture Result (Final) (Final) 10/14/16 <10,000 CFU/mL Gamma Hemolytic StreptococcusRPR, [id number] 03:18:00 Test Item Value Reference Range Comments RPR (test code=RPR) Non-Reactive Non-Reactive Rubella [id number] 03:18:00 Test Item Value Reference Range Comments Rubella IgG (test code=RUBELIGG) Immune Immune HIV [id number] 22:59:00 Test Item Value Reference Range Comments HIV 1/2 Antibody (test Non-Reactive Non-Reactive HIV1/2 Antibody screen result code=HIV1/2AB) indicates the absence of HIV1 and JKT8zwdpbvviz.However, A Non-Reactive screen result does not rule [...] RNA Quantitative is recommended. Antibody Screen - [id number] 21:23:00 Test Item Value Reference Range Comments Antibody Screen (test code=ABSCR) Negative Blood Type and [id number] 21:22:00 Test Item Value Reference Range Comments ABO type (test code=ABO) A Rh Type (test code=RH) Positive Hep B Surface [id number] 21:06:00 Test Item Value Reference Range Comments Hep Bs Ag (test code=HBSAG) Nonreactive Non-Reactive Comprehensive Metabolic [id number] 20:56:00 Test Item Value Reference Range Comments [...] race is not provided, and the patient isAfrican-South [place]ese, multiply by 1.212. If sex is not provided, and thepatient is female, multiply by 0.742. Results for patients <18 years ofage have not been validated by the MDRD study and should be interpretedwith caution.eGFR Result Interpretation:eGFR > or=60 is in the Normal RangeeGFR < 60 may mean kidney diseaseeGFR < 15 may mean kidney failureRanges recommended by the National Kidney Foundation,http://nkdep.nih .gov [id number] 20:56:00 Test Item Value Reference Range Comments [...] code=PROPOX) THC (test code=THC) Negative Negative Urinalysis [id number] 20:46:00 Test Item Value Reference Range Comments Color (test code=COLOR) Yellow Yellow,Straw,Pl yellow Clarity (test code=CLAR) Clear Clear Specific Stewart (test code=SPGR) 1.007 1.001-1.035 pH (test code=PH) [...] (test code=MEXAM) Not indicated CBC LD with [id number] 20:40:00 Test Item Value Reference Range Comments [...] Lymph Abs (test code=ALYMPH) 1.7 K/cumm 0.5-4.6 [place] Abs (test code=AMONO) 0.6 K/cumm 0.0-1.2 Eos Abs (test code=AEOS) 0.1 K/cumm 0.0-0.7 Baso Abs (test code=ABASO) 0.0 K/cumm 0.0-0.2
[2018-09-02] MEDS ORDERED: ACETAMINOPHEN 325 MG TABLET ONE (21:38)
[2018-09-02] MEDS ORDERED: DEXAMETHASONE 4 MG TAB ONE (21:38)
[2018-09-02] MEDS ORDERED: HYDROCODONE/APAP 5/325 MG TAB ONE (21:38)
[2018-09-02] MEDS ORDERED: AMOX/K CLAV 875 MG TAB ONE (21:39)
--- NOTE | 2018-09-02 21:59 | ER ---
Nurse's Notes [facility] Name: Cristiana Dunn Age: 28 yrs Sex: Female : 1990 Arrival Date: 09/02/2018 Time: 18:40 Bed 14 Private MD: Diagnosis: Acute pharyngitis;Fever presenting with conditions classified elsewhere Presentation: 09/02 19:29 Presenting complaint: Patient states: "I am having a fever and I think I am having a jd3 throat infection.". Transition of care: patient was not received from another setting of care. Onset of symptoms was September 01, 2018. Risk Assessment: Do you want to hurt yourself or someone else? Patient reports no desire to harm self or others. Initial Sepsis Screen: Does the patient meet any 2 criteria? No. Patient's initial sepsis screen is negative. Does the patient have a suspected source of infection? No. Patient's initial sepsis screen is negative. Care prior to arrival: None. 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 - Social history:: Smoking status: Patient uses tobacco products, denies chronic smoking, but will smoke occasionally. - Ebola Screening: : Patient negative for fever greater than or equal to 101.5 degrees Fahrenheit, and additional compatible Ebola Virus Disease symptoms. Screenin:32 Abuse screen: Denies threats or abuse. Nutritional screening: No deficits noted. ea Tuberculosis screening: No symptoms or risk factors identified. Fall Risk None identified. Assessment: 20:50 General: Appears uncomfortable, Behavior is calm, cooperative, appropriate for age. ea Pain: Complains of pain in sore throat. Neuro: Level of Consciousness is awake, alert, obeys commands, Oriented to person, place, time, situation. Cardiovascular: Patient's skin is warm and dry. Respiratory: Airway is patent Respiratory effort is even, unlabored, Respiratory pattern is regular, symmetrical, Breath sounds are clear bilaterally. EENT: Throat is reddened has patchy exudate has enlarged tonsils bilaterally. Derm: Skin is pink, warm \\T\\ dry. 21:41 Reassessment: Patient and/or family updated on plan of care and expected duration. Pain ea level reassessed. Patient is alert, oriented x 3, equal unlabored respirations, skin warm/dry/pink. 22:27 Reassessment: Patient and/or family updated on plan of care and expected duration. Pain ea level reassessed. Patient is alert, oriented x 3, equal unlabored respirations, skin warm/dry/pink. Discharge instructions given to patient, verbalized the understanding of instruction Patient states feeling better. Patient states symptoms have improved. Vital Signs: 19:31 BP 115 / 72; Pulse 112; Resp 17 S; Temp 100.5(O); Pulse Ox 100% on R/A; Weight 82 kg jd3 (R); Height 5 ft. 9 in. (175.26 cm) (R); Pain 10/10; 20:50 BP 140 / 89; Pulse 81; Resp 18; Pulse Ox 99% on R/A; ea 22:28 Temp 98.9(O); ea 19:31 Body Mass Index 26.70 (82.00 kg, 175.26 cm) jd3 ED Course: 18:40 Patient arrived in ED. rg4 19:30 Triage completed. jd3 19:33 Arm band placed on Patient notified of wait time. jd3 20:46 Mily Ribera FNP-C is [facility]. snw 20:46 Zander Ware MD is Attending Physician. snw 20:48 Kirti Marie RN is Primary Nurse. ea 20:50 Patient has correct armband on for positive identification. Bed in low position. Call ea light in reach. Side rails up X 1. 22:27 No provider procedures requiring assistance completed. Patient did not have IV access ea during this emergency room visit. Administered Medications: 21:30 Drug: [place] 5 mg-325 mg 1 tabs Route: PO; ea 22:29 Follow up: Response: No adverse reaction; Pain is decreased ea 21:30 Drug: Tylenol 650 mg Route: PO; ea 22:00 Follow up: Response: No adverse reaction; Pain is decreased ea 21:31 Drug: Decadron 8 mg Route: PO; ea 22:00 Follow up: Response: No adverse reaction ea 21:31 Drug: Augmentin 875 mg Route: PO; ea 22:00 Follow up: Response: No adverse reaction ea Outcome: 21:58 Discharge ordered by . sarah 22:27 Discharged to home ambulatory, with family. ea 22:27 Condition: good 22:27 Discharge instructions given to patient, Instructed on discharge instructions, follow up and referral plans. medication usage, Demonstrated understanding of instructions, follow-up care, medications, Prescriptions given X 2. 22:30 Patient left the ED. ea Signatures: Mily Ribera, TELEPHONE REPAIRER-C TELEPHONE REPAIRER-Neelima Boyd rg4 Kirti Marie, RN RN Curt Jeffery RN RN jd3
--- NOTE | 2018-09-02 21:59 | EDPHYS ---
Physician Documentation [facility] Name: Cristiana Dunn Age: 28 yrs Sex: Female : 1990 Arrival Date: 09/02/2018 Time: 18:40 Bed 14 Private MD: ED Physician Zander Ware HPI: 09/02 21:08 This 28 yrs old Female presents to ER via Ambulatory with complaints of Sore snw Throat, Fever. 21:08 The patient presents with sore throat, dysphagia. The patient describes throat pain as snw constant. Onset: The symptoms/episode began/occurred suddenly, yesterday. Severity of symptoms: At their worst the symptoms were severe. Modifying factors: The symptoms are alleviated by nothing, the symptoms are aggravated by swallowing. Associated signs and symptoms: Pertinent positives: fever, flu-like symptoms, Sore throat. The patient has experienced a previous episode, approximately 4 years ago. It is unknown whether or not the patient has recently seen a physician. 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 - Social history:: Smoking status: Patient uses tobacco products, denies chronic smoking, but will smoke occasionally. - Ebola Screening: : Patient negative for fever greater than or equal to 101.5 degrees Fahrenheit, and additional compatible Ebola Virus Disease symptoms. ROS: 21:07 Eyes: Negative for injury, pain, redness, and discharge. snw 21:07 Neck: Negative for injury, pain, and swelling. 21:07 Cardiovascular: Negative for chest pain, palpitations, and edema, Respiratory: Negative for shortness of breath, cough, wheezing, and pleuritic chest pain, Abdomen/GI: Negative for abdominal pain, nausea, vomiting, diarrhea, and constipation, Back: Negative for injury and pain, : Negative for injury, bleeding, discharge, and swelling, MS/Extremity: Negative for injury and deformity, Skin: Negative for injury, rash, and discoloration, Neuro: Negative for headache, weakness, numbness, tingling, and seizure. 21:07 Constitutional: Positive for body aches, fever, malaise, poor PO intake. 21:07 ENT: Positive for sore throat. 21:07 Cardiovascular: Exam: 21:04 Head/Face: Normocephalic, atraumatic. Eyes: Pupils equal round and reactive to light, snw extra-ocular motions intact. Lids and lashes normal. Conjunctiva and sclera are non-icteric and not injected. Cornea within normal limits. Periorbital areas with no swelling, redness, or edema. Neck: Trachea midline, no thyromegaly or masses palpated, and no cervical lymphadenopathy. Supple, full range of motion without nuchal rigidity, or vertebral point tenderness. No Meningismus. Chest/axilla: Normal chest wall appearance and motion. Nontender with no deformity. No lesions are appreciated. Respiratory: Lungs have equal breath sounds bilaterally, clear to auscultation and percussion. No rales, rhonchi or wheezes noted. No increased work of breathing, no retractions or nasal flaring. Abdomen/GI: Soft, non-tender, with normal bowel sounds. No distension or tympany. No guarding or rebound. No evidence of tenderness throughout. Back: No spinal tenderness. No costovertebral tenderness. Full range of motion. Skin: Warm, dry with normal turgor. Normal color with no rashes, no lesions, and no evidence of cellulitis. MS/ Extremity: Pulses equal, no cyanosis. Neurovascular intact. Full, normal range of motion. Neuro: Awake and alert, GCS 15, oriented to person, place, time, and situation. Cranial nerves II-XII grossly intact. Motor strength 5/5 in all extremities. Sensory grossly intact. Cerebellar exam normal. Normal gait. 21:04 Constitutional: The patient appears alert, awake, anxious, febrile, restless, uncomfortable. 21:07 ENT: External ear(s): are unremarkable, TM's: are normal, Nose: is normal, Mouth: is snw normal, Posterior pharynx: Tonsils: bilaterally enlarged, with erythema, with exudate, Voice: is normal. 21:08 Cardiovascular: Rate: tachycardic, Rhythm: regular, Heart sounds: normal. snw Vital Signs: 19:31 BP 115 / 72; Pulse 112; Resp 17 S; Temp 100.5(O); Pulse Ox 100% on R/A; Weight 82 kg jd3 (R); Height 5 ft. 9 in. (175.26 cm) (R); Pain 10/10; 20:50 BP 140 / 89; Pulse 81; Resp 18; Pulse Ox 99% on R/A; ea 22:28 Temp 98.9(O); ea 19:31 Body Mass Index 26.70 (82.00 kg, 175.26 cm) jd3 MDM: 20:59 Patient medically screened. critical [facility] 22:01 Data reviewed: vital signs, nurses notes. Counseling: I had a detailed discussion with snw the patient and/or guardian regarding: the historical points, exam findings, and any diagnostic results supporting the discharge/admit diagnosis, lab results, the need for outpatient follow up, to return to the emergency department if symptoms worsen or persist or if there are any questions or concerns that arise at home. Special discussion: I have referred the patient to see his PCP for further evaluation of high blood pressure. Based on the history and exam findings, there is no indication for further emergent testing or inpatient evaluation. I discussed with the patient/guardian the need to see the primary care provider for further evaluation of the symptoms. 09/02 20:39 Order name: Strep; Complete Time: 22:04 critical [facility] hospital 09/02 20:39 Order name: Flu; Complete Time: 22:04 critical access hospital 09/02 22:04 Order name: Throat Culture EDMS Administered Medications: 21:30 Drug: [place] 5 mg-325 mg 1 tabs Route: PO; ea 22:29 Follow up: Response: No adverse reaction; Pain is decreased ea 21:30 Drug: Tylenol 650 mg Route: PO; ea 22:00 Follow up: Response: No adverse reaction; Pain is decreased ea 21:31 Drug: Decadron 8 mg Route: PO; ea 22:00 Follow up: Response: No adverse reaction ea 21:31 Drug: Augmentin 875 mg Route: PO; ea 22:00 Follow up: Response: No adverse reaction ea Disposition: 09/03 03:16 Co-signature as Attending Physician, Zander Ware MD. rn Disposition: 09/02/18 21:58 Discharged to Home. Impression: Acute pharyngitis, Fever presenting with conditions classified elsewhere. - Condition is Stable. - Discharge Instructions: Fever, Adult, Hypertension, Pharyngitis, How to Take Your Blood Pressure, Vomt-la-Wlnc, Rehydration, Adult, Form - Blood Pressure Record Sheet. - Prescriptions for Augmentin 875- 125 mg Oral Tablet - take 1 tablet by ORAL route every 12 hours for 10 days; 20 tablet. promethazine 25 mg Oral Tablet - take 1 tablet by ORAL route every 6 hours As needed; 20 tablet. - Work release form, Medication Reconciliation Form, Thank You Letter, Antibiotic Education, Prescription Opioid Use, Family Work Release form. - Follow up: Private Physician; When: 2 - 3 days; Reason: Recheck today's complaints, Continuance of care, Re-evaluation by your physician. Follow up: Emergency Department; When: As needed; Reason: Worsening of condition. Signatures: Dispatcher [employer] EDMS Mily Ribera, GODFRE[employer] MEDICAL ART THERAPIST-Csnw Zander Ware MD MD rn Antunez, Elena, RN RN ea Davies, Jonathon, RN RN jd3 Corrections: (The following items were deleted from the chart) 09/02 21:08 21:04 Head/Face: Normocephalic, atraumatic. Eyes: Pupils equal round and reactive to snw light, extra-ocular motions intact. Lids and lashes normal. Conjunctiva and sclera are non-icteric and not injected. Cornea within normal limits. Periorbital areas with no swelling, redness, or edema. Neck: Trachea midline, no thyromegaly or masses palpated, and no cervical lymphadenopathy. Supple, full range of motion without nuchal rigidity, or vertebral point tenderness. No Meningismus. Chest/axilla: Normal chest wall appearance and motion. Nontender with no deformity. No lesions are appreciated. Respiratory: Lungs have equal breath sounds bilaterally, clear to auscultation and percussion. No rales, rhonchi or wheezes noted. No increased work of breathing, no retractions or nasal flaring. Abdomen/GI: Soft, non-tender, with normal bowel sounds. No distension or tympany. No guarding or rebound. No evidence of tenderness throughout. Back: No spinal tenderness. No costovertebral tenderness. Full range of motion. Skin: Warm, dry with normal turgor. Normal color with no rashes, no lesions, and no evidence of cellulitis. MS/ Extremity: Pulses equal, no cyanosis. Neurovascular intact. Full, normal range of motion. Neuro: Awake and alert, GCS 15, oriented to person, place, time, and situation. Cranial nerves II-XII grossly intact. Motor strength 5/5 in all extremities. Sensory grossly intact. Cerebellar exam normal. Normal gait. snw 22:30 21:58 09/02/2018 21:58 Discharged to Home. Impression: Acute pharyngitis; Fever ea presenting with conditions classified elsewhere. Condition is Stable. Forms are Medication Reconciliation Form, Thank You Letter, Antibiotic Education, Prescription Opioid Use. Follow up: Private Physician; When: 2 - 3 days; Reason: Recheck today's complaints, Continuance of care, Re-evaluation by your physician. Follow up: Emergency Department; When: As needed; Reason: Worsening of condition. snw
== END 2018-09-02 22:30 | disposition home or self-care (01) ==
LOC: ER 18:39
DX: J02.9 Acute pharyngitis, unspecified (principal); Z91.041 Radiographic dye allergy status; Z72.0 Tobacco use
CPT/HCPCS: 87070; 87081; 87804; 99283

== ENCOUNTER 2018-12-01 18:46 | Emergency (ER) | payer OTHER ==
--- OUTSIDE RECORDS SUMMARY | 2018-12-01 18:49 | XMS REPORT | Continuity of Care Document ---
:1990 Author Organization Interface Problems Problem Status Onset Classification Date Comments Source Date Reported Discharge 05/30/20 06/02/2017 Diagnosis: Acute 17 [facility] head injury Discharge 05/30/20 06/02/2017 Diagnosis: Brain [facility] concussion HEAD PAIN Active 05/30/20 [facility] Discharge 06/16/19 06/19/2016 Diagnosis: 17 [facility] Abdominal pain during OTHER Active 06/16/[address] Gastroenteritis Resolved Problem 06/02/2017 [facility] Medications Medication Details Route Status Patient Ordering Order Source Instructions Provider Date Acetaminophen 650 mg, 2 Inactive tab, 017 Route: PO, Drug form: TAB, ONCE, Dosing Weight 82.727, kg, Priority: STAT, Start date: 05/30/17 22:10:00 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 (Same as: Tylenol) Saline Flush 10 mL, Inactive 0.9% Route: [facility] IVP, Drug Form: INJ, kg, PRN, PRN Line Flush, Start date: 06/16/16 16:50:00 TRANSMISSION REBUILDER, Duration: 30 day, Stop date: 07/16/16 16:49:00 CSTNotes: (Same as: BD Posiflush) Allergies, Adverse Reactions, Alerts Substance Category Reaction Severity Reaction Status Date Comments Source type Reported contrast Assertion Drug Active media allergy [facility] (iodine-bas ed) Immunizations Immunization Date Given Site [...] head.; - contrast contrast CT /2016 - [facility] CT Comparison: None Read by: Raymundo Thrasher [...] BLOOD BANK ABO/Rh A POS 06/17 /2016 [facility] ELECTROLYT AGAP 13.4 meq/L 10.0 - 06/17 ES 20.0 [facility] ELECTROLYT A/G Ratio 0.8 0.7 - 1.6 06/17 [facility] ELECTROLYT B/C Ratio 12 6 - 25 06/17 [facility] ELECTROLYT Globulin 4.3 g/dL 2.7 - 4.2 06/17 [facility] ELECTROLYT eGFR 135 06/17 Result Comment: [...] is not recommended in the following populations: [address] Individuals with unstable creatinine concentrations, including [...] Phos 53 unit/L 39 - 136 06/17 [facility] ELECTROLYT Bili Total 0.3 mg/dL 0.2 - 1.3 06/17 [facility] ELECTROLYT ALT 30 unit/L 0 - 65 06/17 [facility] ELECTROLYT AST 15 unit/L 0 - 37 06/17 [facility] ELECTROLYT BUN 6 mg/dL 7 - 22 06/17 [facility] ELECTROLYT Chloride Lvl 102 meq/L 95 - 109 06/17 [facility] ELECTROLYT Potassium 3.4 meq/L 3.5 - 5.1 06/17 ES Lvl [facility] ELECTROLYT Sodium Lvl 136 meq/L 135 - 145 06/17 [facility] ELECTROLYT Creatinine 0.50 mg/dL 0.50 - 06/17 ES Lvl 1.40 [facility] ELECTROLYT Albumin Lvl 3.6 g/dL 3.5 - 5.0 06/17 [facility] ELECTROLYT Total 7.9 g/dL 6.4 - 8.4 06/17 [facility] ELECTROLYT Calcium Lvl 9.0 mg/dL 8.5 - 10.5 06/17 [facility] ELECTROLYT CO2 24 meq/L 24 - 32 06/17 [facility] ELECTROLYT Glucose Lvl 74 mg/dL 70 - 99 06/17 [facility] [place] [id number] 06/17 OGY mIU/mL [facility] HEMATOLOGY Eosinophils 0.8 % 0.0 - 4.0 06/17 [facility] HEMATOLOGY Basophils 0.3 % 0.0 - 1.0 06/17 [facility] HEMATOLOGY Lymphocytes 28.9 % 20.0 - 06/17 40.0 [facility] HEMATOLOGY Monocytes 8.4 % 2.0 - 12.0 06/17 [facility] HEMATOLOGY Lymphocytes 1.8 K/CMM 1.0 - 5.5 06/17 # /2017 [facility] HEMATOLOGY Monocytes # 0.5 K/CMM 0.0 - 0.8 06/17 [facility] HEMATOLOGY Eosinophils 0.1 K/CMM 0.0 - 0.5 06/17 MH # /2017 [facility] HEMATOLOGY Basophils # 0.0 K/CMM 0.0 - 0.2 06/17 [facility] HEMATOLOGY Segs-Bands # 3.8 K/CMM 1.5 - 8.1 06/17 [facility] HEMATOLOGY Segs 61.6 % 45.0 - 06/17 MH 75.0 /2016 [facility] HEMATOLOGY MPV 7.3 fL 7.4 - 10.4 06/17 [facility] HEMATOLOGY RDW 12.7 % 11.5 - 06/17 MH 14.5 /2016 [facility] HEMATOLOGY Platelet 398 K/CMM 133 - 450 06/17 [facility] HEMATOLOGY MCHC 32.4 g/dL 32.0 - 06/17 MH 36.0 /2016 [facility] HEMATOLOGY MCV 86.7 fL 80.0 - 06/17 98.0 /2016 [facility] MCH 28.1 pg 27.0 - 06/17 31.0 [facility] HEMATOLOGY Hct 32.7 % 36.0 - 06/17 MH 48.0 /2016 [facility] HEMATOLOGY Hgb 10.6 g/dL 12.0 - 06/17 MH 16.0 [facility] HEMATOLOGY RBC 3.78 M/CMM 4.20 - 06/17 5.40 /2016 [facility] HEMATOLOGY WBC 6.3 K/CMM 3.7 - 10.4 06/17 [facility] URINE AND UA Color Katelynn 06/17 [facility] URINE AND UA <=1.0 0.1 - 1.0 06/17 [facility] Urobilinogen mg/dL /2016 [facility] URINE AND UA Turbidity Slight Clear 06/17 [facility]OOL [facility] *ABN* (06/16/16 6:10 PM) URINE AND UA Spec Grav 1.027 <=1.030 06/17 [facility] URINE AND UA pH 5.0 5.0 - 8.0 06/17 [facility] URINE AND UA WBC 3 /HPF 0 - 5 06/17 [facility]OOL [facility] URINE AND UA RBC 3 /HPF 0 - 2 06/17 [facility] URINE AND UA Protein Negative Negative 06/17 [facility] mg/dL mg/dL [facility] URINE AND UA Glucose Negative Negative 06/17 [facility] mg/dL mg/dL [facility] URINE AND UA Ketones Negative Negative 06/17 [facility] mg/dL mg/dL [facility] URINE AND UA Nitrite Negative Negative 06/17 [facility] /2016 [facility] (06/16/16 6:10 PM) URINE AND UA Leuk Est Negative Negative 06/17 [facility]OOL [facility] (06/16/16 6:10 PM) URINE AND UA Sq Epi Many /LPF Few /LPF 06/17 [facility] URINE AND UA Bacteria Occasional None Seen 06/17 [facility] /HPF /HPF /2016 [facility] URINE AND UA Mucus Many /LPF None Seen 06/17 [facility] /LPF /2016 [facility] URINE AND UA Blood Negative Negative 06/17 STOOL [facility] (06/16/16 6:10 PM) URINE AND UA Bili Negative Negative 06/17 STOOL [facility] *NA* (06/16/16 6:10 PM) Vital Signs Vital Sign Value Date Comments Source Temperature Oral (F) 98.4 F 05/31/2017 [facility] Systolic (mm Hg) 113 05/31/2017 [facility] Diastolic (mm Hg) 60 05/31/2017 [facility] Respitory Rate 16 05/31/2017 [facility] Heart Rate 73 05/31/2017 [facility] Height 175.26 cm 05/30/2017 [facility] Weight 82.727 05/30/2017 [facility] Temperature Oral (F) 99.3 F 05/30/2017 [facility] Heart Rate 76 05/30/2017 [facility] Respitory Rate 18 05/30/2017 [facility] BMI Calculated 26.93 05/30/2017 [facility] Systolic (mm Hg) 102 05/30/2017 [facility] Diastolic (mm Hg) 69 05/30/2017 [facility] Heart Rate 82 06/17/2016 [facility] Diastolic (mm Hg) 72 06/17/2016 [facility] Systolic (mm Hg) 119 06/17/2016 [facility] Respitory Rate 16 06/17/2016 [facility] Height 175.26 cm 06/16/2016 [facility] Weight 83.182 06/16/2016 [facility] BMI Calculated 27.08 06/16/2016 [facility] Temperature Oral (F) 98.7 F 06/16/2016 [facility] Respitory Rate 18 06/16/2016 [facility] Heart Rate 82 06/16/2016 [facility] Systolic (mm Hg) 114 06/16/2016 [facility] Diastolic (mm Hg) 72 06/16/2016 [facility] Encounters Location Location Encounter Encounter Reason Attending ADM DC Status Source Details Type Number For Provider Date Date [facility] [id number] Rena 06/16 06/17 KRISTEN Alcaraz /2016 [facility] [id number] Kelly 05/30 05/31 KRISTEN [facility] Procedures Procedure Code Date Perfomer Comments Source
--- OUTSIDE RECORDS SUMMARY | 2018-12-01 18:50 | XMS REPORT ---
:1990 Author Organization [facility] Address [address] [place] [address] [address]. [address] [place] [address] Care Team Providers Name Role Phone DAKOTA REES Primary Care Provider Unavailable DAKOTA REES Unavailable Unavailable Problems This patient has no known problems. Allergies, Adverse Reactions, Alerts This patient has no known allergies or adverse reactions. Medications This patient has no known medications. Encounters Start End Encounter Admission Attending Care Care Encounter Date/Time Date/Time Type Type Clinicians Facility Department ID 2016-11-13 2016-11-[address] [facility] [id number] 00:01:00 00:01:00 2016-10-31 2016-10-31 Emergency [facility] [id number] 03:03:00 03:03:00 2016-10-23 2016-10-[address] [facility] [id number] 09:10:00 09:10:00 Results Test Description Test Time [...] 140-440 MPV (test code=MPV) 7.7 fL RPR, [id number] 03:18:00 Test Item Value Reference Range Comments RPR (test code=RPR) Non-Reactive Non-Reactive Lactate [id number] 01:06:00 Test Item Value Reference Range Comments LDH (test code=LDH) 144 U/L 135-214 Hemogram [id number] 01:03:00 Test Item Value Reference Range Comments [...] MPV (test code=MPV) 8.1 fL Comprehensive Metabolic [id number] 00:51:00 Test Item Value Reference Range Comments [...] race is not provided, and the patient isAfrican-Uzbek, multiply by 1.212. If sex is not provided, and thepatient is female, multiply by 0.742. Results for patients <18 years ofage have not been validated by the MDRD study and should be interpretedwith caution.eGFR Result Interpretation:eGFR > or=60 is in the Normal RangeeGFR < 60 may mean kidney diseaseeGFR < 15 may mean kidney failureRanges recommended by the National Kidney Foundation,http://nkdep.nih .gov Uric [id number] 00:51:00 Test Item Value Reference Range Comments Uric Acid (test code=UA) 3.6 mg/dL 2.4-5.7 Protein, Urine [id number] 00:50:00 Test Item Value Reference Range Comments TP, Urine (test code=TPURRM) 22.9 mg/dL Creatinine, Urine [id number] 00:50:00 Test Item Value Reference Range Comments Creatinine, Urine Rm (test code=CREURRM) 73.8 mg/dL 10.0-300.0 Blood [id number] 23:20:00 Test Item Value Reference Range Comments [...] (test 0 code=RESP RATE) Hep B Surface [id number] 14:37:00 Test Item Value Reference Range Comments Hep Bs Ag (test code=HBSAG) Nonreactive Non-Reactive CBC LD with [id number] 14:13:00 Test Item Value Reference Range Comments [...] Lymph Abs (test code=ALYMPH) 1.7 K/cumm 0.5-4.6 [place] Abs (test code=AMONO) 0.8 K/cumm 0.0-1.2 Eos Abs (test code=AEOS) 0.1 K/cumm 0.0-0.7 Baso Abs (test code=ABASO) 0.0 K/cumm 0.0-0.2 Chlamydia/GC [id number] 14:11:00 Test Item Value Reference Range Comments Chlamydia trachomatis, CATHLEEN (test zhue=401325) Negative Negative Neisseria gonorrhoeae, CATHLEEN (test qvlv=170930) Negative Negative Culture, Vaginal Strep [id number] 08:34:00Specimen: VaginaCollected: 10/12 19:39 Status: Final Last Updated: 10/16/2016 08:39 Culture Result ( Final) (Final) 10/15/16 No Group B Strep isolated at 24 hours 10/16/16 No Group B Strep isolated at 48 hoursCulture, [id number] 07:48:00Specimen: UrineCollected: 10/12/2016 18:21 Status: Final Last Updated: 10/15/2016 07: 48 Culture Result (Final) (Final) 10/14/16 <10,000 CFU/mL Gamma Hemolytic StreptococcusRPR, [id number] 03:18:00 Test Item Value Reference Range Comments RPR (test code=RPR) Non-Reactive Non-Reactive Rubella [id number] 03:18:00 Test Item Value Reference Range Comments Rubella IgG (test code=RUBELIGG) Immune Immune HIV [id number] 22:59:00 Test Item Value Reference Range Comments HIV 1/2 Antibody (test Non-Reactive Non-Reactive HIV1/2 Antibody screen result code=HIV1/2AB) indicates the absence of HIV1 and AAM8gwrozzpdu.However, A Non-Reactive screen result does not rule [...] RNA Quantitative is recommended. Antibody Screen - [id number] 21:23:00 Test Item Value Reference Range Comments Antibody Screen (test code=ABSCR) Negative Blood Type and [id number] 21:22:00 Test Item Value Reference Range Comments ABO type (test code=ABO) A Rh Type (test code=RH) Positive Hep B Surface [id number] 21:06:00 Test Item Value Reference Range Comments Hep Bs Ag (test code=HBSAG) Nonreactive Non-Reactive Comprehensive Metabolic [id number] 20:56:00 Test Item Value Reference Range Comments [...] race is not provided, and the patient isAfrican-Uzbek, multiply by 1.212. If sex is not provided, and thepatient is female, multiply by 0.742. Results for patients <18 years ofage have not been validated by the MDRD study and should be interpretedwith caution.eGFR Result Interpretation:eGFR > or=60 is in the Normal RangeeGFR < 60 may mean kidney diseaseeGFR < 15 may mean kidney failureRanges recommended by the National Kidney Foundation,http://nkdep.nih .gov [id number] 20:56:00 Test Item Value Reference Range Comments [...] code=PROPOX) THC (test code=THC) Negative Negative Urinalysis [id number] 20:46:00 Test Item Value Reference Range Comments Color (test code=COLOR) Yellow Yellow,Straw,Pl yellow Clarity (test code=CLAR) Clear Clear Specific [place] (test code=SPGR) 1.007 1.001-1.035 pH (test code=PH) [...] (test code=MEXAM) Not indicated CBC LD with [id number] 20:40:00 Test Item Value Reference Range Comments [...] Lymph Abs (test code=ALYMPH) 1.7 K/cumm 0.5-4.6 [place] Abs (test code=AMONO) 0.6 K/cumm 0.0-1.2 Eos Abs (test code=AEOS) 0.1 K/cumm 0.0-0.7 Baso Abs (test code=ABASO) 0.0 K/cumm 0.0-0.2
[2018-12-01] MEDS ORDERED: ACETAMINOPHEN 500 MG TAB ONE (19:56)
[2018-12-01 20:00] LABS: Urine Blood NEGATIVE (NEG); Urine Glucose NEGATIVE (NEG); Urine Protein NEGATIVE (NEG); Urine Specific Gravity 1.025 (1.005-1.030)
[2018-12-01] MEDS ORDERED: DEXAMETHASONE 10 MG/ML VIAL ONE (20:34)
--- NOTE | 2018-12-01 20:49 | ER ---
Nurse's Notes [facility] Name: Cristiana Dunn Age: 28 yrs Sex: Female : 1990 Arrival Date: 12/01/2018 Time: 18:50 Bed 15 Private MD: Diagnosis: Acute pharyngitis Presentation: 12/01 18:50 Presenting complaint: Patient states: Fever sore throat, body aches for 2 days. Tylenol aj taken at 1200. Care prior to arrival: Medication(s) given: Tylenol, 1000 mg. 18:50 Acuity: JESS 4 aj 18:50 Method Of Arrival: Ambulatory aj Triage Assessment: 18:51 General: Appears in no apparent distress. uncomfortable, Behavior is calm, cooperative, aj appropriate for age. Pain: Complains of pain in left aspect of posterior pharynx and right aspect of posterior pharynx. EENT: Reports pain when swallowing. Respiratory: Airway is patent Respiratory effort is even, unlabored, Respiratory pattern is regular, symmetrical. Derm: Skin is intact, is healthy with good turgor, Skin is pink, warm \T\ dry. normal. 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 - Social history:: Smoking status: unknown. Screenin:15 Abuse screen: Denies threats or abuse. Denies injuries from another. Nutritional rr5 screening: No deficits noted. Tuberculosis screening: No symptoms or risk factors identified. Fall Risk None identified. Total Vanegas Fall Scale indicates No Risk (0-24 pts). Assessment: 19:30 General: Appears in no apparent distress. uncomfortable, Behavior is calm, cooperative, rr5 appropriate for age, Reports fever for. 19:30 Pain: Complains of pain in thoat Pain does not radiate. Pain currently is 10 out of 10 rr5 on a pain scale. Quality of pain is described as aching, Pain began gradually. Neuro: Level of Consciousness is awake, alert, obeys commands, Oriented to person, place, time, situation, Appropriate for age. Cardiovascular: Capillary refill < 3 seconds Patient's skin is warm and dry. Respiratory: Airway is patent Respiratory effort is even, unlabored, Respiratory pattern is regular, symmetrical, Breath sounds are clear. GI: No signs and/or symptoms were reported involving the gastrointestinal system. : No signs and/or symptoms were reported regarding the genitourinary system. EENT: Throat is reddened has patchy exudate on right with gag reflex present. Derm: Skin is intact, Skin temperature is warm. Musculoskeletal: Capillary refill < 3 seconds, Range of motion: intact in all extremities. 20:10 Reassessment: Patient appears in no apparent distress at this time. Patient is alert, rr5 oriented x 3, equal unlabored respirations, skin warm/dry/pink. Patient states symptoms have improved. Pain: Pain currently is 8 out of 10 on a pain scale. 20:55 Reassessment: Patient appears in no apparent distress at this time. Patient is alert, rr5 oriented x 3, equal unlabored respirations, skin warm/dry/pink. discharge instruction given and explained without complaints made. Vital Signs: 18:51 BP 129 / 80; Pulse 112; Resp 18; Temp 99.0; Pulse Ox 99% on R/A; Weight 84.82 kg; aj Height 5 ft. 9 in. (175.26 cm); 19:27 BP 134 / 76; Pulse 105; Resp 20; Temp 101.3; Pulse Ox 98% ; Pain 10/10; rr5 20:23 BP 120 / 81; Pulse 100; Resp 19; Temp 101.4; Pulse Ox 100% on R/A; Pain 8/10; rr5 20:56 BP 118 / 72; Pulse 90; Resp 17; Temp 99.8; Pulse Ox 100% on R/A; rr5 18:51 Body Mass Index 27.61 (84.82 kg, 175.26 cm) ED Course: 18:50 Patient arrived in ED. as 18:51 Triage completed. 18:51 Arm band placed on left wrist. Patient placed in an exam room. 18:54 Phil Hurt PA is PHCP. [facility] 18:54 Maikol Holman MD is Attending Physician. [facility] 19:26 Gregorio Bullock RN is Primary Nurse. rr5 19:30 Patient has correct armband on for positive identification. Bed in low position. rr5 20:45 No provider procedures requiring assistance completed. Patient did not have IV access rr5 during this emergency room visit. Administered Medications: 19:40 Drug: Tylenol 1000 mg Route: PO; rr5 20:40 Follow up: Response: No adverse reaction rr5 20:21 Drug: Dexamethasone 10 mg Route: IM; Site: right gluteus; rr5 20:57 Follow up: Response: No adverse reaction rr5 Outcome: 20:48 Discharge ordered by MD. omer 20:56 Patient left the ED. rr5 Signatures: Scarlet Wright RN RN aj Mickail, Joel, PA PA jmm Martinez, Amelia as Roque, Raymond, CRISTELA RN rr5
--- NOTE | 2018-12-01 20:49 | EDPHYS ---
Physician Documentation [facility] Name: Cristiana Dunn Age: 28 yrs Sex: Female : 1990 Arrival Date: 12/01/2018 Time: 18:50 Bed 15 Private MD: ED Physician Maikol Holman HPI: 12/01 19:03 This 28 yrs old Female presents to ER via Ambulatory with complaints of Fever, jmm Sore Throat. 19:03 The patient presents with sore throat. Onset: The symptoms/episode began/occurred jmm gradually, 2 day(s) ago. Associated signs and symptoms: Pertinent positives: chills, fever, headache, Pertinent negatives cough, shortness of breath. [employer] ROOM: 18:51 LMP 11/07/2018 aj Historical: - Allergies: 18:51 Iodinated Contrast Media - IV Dye; aj - Immunization history:: Adult Immunizations unknown. - Social history:: Smoking status: unknown. ROS: 19:03 Constitutional: Positive for fever. [facility] 19:03 ENT: Positive for sore throat. 19:03 Respiratory: Negative for cough. 19:03 Neuro: Positive for headache. 19:03 All other systems are negative. Exam: 19:03 Head/Face: atraumatic. Eyes: EOMI, no conjunctival erythema appreciated [facility] 19:03 Neck: Trachea midline, Supple Chest/axilla: Normal chest wall appearance and motion. 19:03 Constitutional: The patient appears in no acute distress, alert, awake. 19:03 ENT: TM's: are normal, Posterior pharynx: erythema, that is moderate, exudate, that is moderate, peritonsillar mass, is not appreciated. 19:03 Cardiovascular: Rate: normal, Rhythm: regular. 19:03 Respiratory: the patient does not display signs of respiratory distress, Respirations: normal, Breath sounds: are clear throughout. 19:03 Abdomen/GI: Inspection: abdomen appears normal, Bowel sounds: normal. 19:03 Musculoskeletal/extremity: ROM: intact in all extremities. 19:03 Skin: Appearance: Color: normal in color. 19:03 Neuro: Orientation: is normal, Mentation: is normal, Memory: is normal. 19:03 Psych: Behavior/mood is pleasant, cooperative. Vital Signs: 18:51 BP 129 / 80; Pulse 112; Resp 18; Temp 99.0; Pulse Ox 99% on R/A; Weight 84.82 kg; aj Height 5 ft. 9 in. (175.26 cm); 19:27 BP 134 / 76; Pulse 105; Resp 20; Temp 101.3; Pulse Ox 98% ; Pain 10/10; rr5 20:23 BP 120 / 81; Pulse 100; Resp 19; Temp 101.4; Pulse Ox 100% on R/A; Pain 8/10; rr5 20:56 BP 118 / 72; Pulse 90; Resp 17; Temp 99.8; Pulse Ox 100% on R/A; rr5 18:51 Body Mass Index 27.61 (84.82 kg, 175.26 cm) aj MDM: 19:03 Patient medically screened. [facility] 20:46 Data reviewed: vital signs, nurses notes. Counseling: I had a detailed discussion with kan the patient and/or guardian regarding: the historical points, exam findings, and any diagnostic results supporting the discharge/admit diagnosis, lab results, the need for outpatient follow up, to return to the emergency department if symptoms worsen or persist or if there are any questions or concerns that arise at home. ED course: Patient is alert and non toxic in appearance in the ED. Patient is advised to follow up with pcp and otherwise given strict return precautions. patient understood and agrees with the plan of care. . 12/01 19:21 Order name: Strep; Complete Time: 19:46 [facility] 12/01 19:46 Order name: Urine Dipstick--Ancillary (enter results); Complete Time: 20:50 [facility] 12/01 19:46 Order name: Urine --Ancillary (enter results); Complete Time: 20:50 [facility] 12/01 19:53 Order name: Throat Culture [facility] 12/01 19:21 Order name: Urine Dipstick-Ancillary (obtain specimen); Complete Time: 19:40 [facility] 12/01 19:21 Order name: Urine Test (obtain specimen); Complete Time: 19:40 [facility] Administered Medications: 19:40 Drug: Tylenol 1000 mg Route: PO; rr5 20:40 Follow up: Response: No adverse reaction rr5 20:21 Drug: Dexamethasone 10 mg Route: IM; Site: right gluteus; rr5 20:57 Follow up: Response: No adverse reaction rr5 Disposition: 06/20 07:28 Co-signature as Attending Physician, Maikol Holman MD I agree with the assessment and kdr plan of care. Disposition: 12/01/18 20:48 Discharged to Home. Impression: Acute pharyngitis. - Condition is Stable. - Discharge Instructions: Pharyngitis. - Prescriptions for Amoxicillin 875 mg Oral Tablet - take 1 tablet by ORAL route every 12 hours for 10 days; 20 tablet. - Medication Reconciliation Form, Thank You Letter, Antibiotic Education, Prescription Opioid Use form. - Follow up: Private Physician; When: 2 - 3 days; Reason: Recheck today's complaints, Continuance of care, Re-evaluation by your physician. Signatures: Dispatcher [employer] EDScarlet Calvillo, RN RN Maikol Belle MD MD kdr Mickail, Joel, PA PA jmm Roque, Raymond, RN RN rr5 Corrections: (The following items were deleted from the chart) 12/01 20:56 20:48 12/01/2018 20:48 Discharged to Home. Impression: Acute pharyngitis. Condition is rr5 Stable. Forms are Medication Reconciliation Form, Thank You Letter, Antibiotic Education, Prescription Opioid Use. Follow up: Private Physician; When: 2 - 3 days; Reason: Recheck today's complaints, Continuance of care, Re-evaluation by your physician. kan
== END 2018-12-01 20:56 | disposition home or self-care (01) ==
LOC: ER 18:46
DX: J02.9 Acute pharyngitis, unspecified (principal); Z91.041 Radiographic dye allergy status
CPT/HCPCS: 81003; 81025; 87070; 87081; 96372; 99283; J1100

== ENCOUNTER 2018-12-17 10:10 | Emergency (ER) | payer OTHER ==
--- OUTSIDE RECORDS SUMMARY | 2018-12-17 10:12 | XMS REPORT | Continuity of Care Document ---
:1990 Author Organization [employer] Care Team Providers Name Role Phone [employer] Unavailable Unavailable Problems Problem Status Onset Classification Date Comments Source Date Reported Discharge 05/30/20 06/02/2017 Diagnosis: Acute 17 [facility] head injury Discharge 05/30/20 06/02/2017 Diagnosis: Brain 17 [facility] concussion HEAD PAIN Active 05/30/20 17 [facility] Discharge 06/16/19 06/19/2016 Diagnosis: 17 [facility] Abdominal pain during OTHER Active 06/16/[address] Gastroenteritis Resolved Problem 06/02/2017 [facility] Medications Medication Details Route Status Patient Ordering Order Source Instructions Provider Date Acetaminophen 650 mg, 2 Inactive tab, 017 [facility] Route: PO, Drug form: TAB, ONCE, Dosing Weight 82.727, kg, Priority: STAT, Start date: 05/30/17 22:10:00 SORT MANAGER, Stop date: 05/30/17 22:10:00 CSTNotes: Do not exceed 4 gm/day. (Same as: Tylenol) Saline Flush 10 mL, Inactive 0.9% Route: 017 [facility] IVP, Drug Form: INJ, kg, PRN, PRN Line Flush, Start date: 06/16/16 16:50:00 SORT MANAGER, Duration: 30 day, Stop date: 07/16/16 16:49:00 CSTNotes: (Same as: BD Posiflush) Allergies, Adverse Reactions, Alerts Substance Category Reaction Severity Reaction Status Date Comments Source type Reported contrast Assertion Drug Active media allergy [facility] (iodine-bas ed) Immunizations No Data Provided for This Section Results Order Name Results Value Reference Date Interpretation Comments Source Range BLOOD BANK ABO/Rh A POS 06/17 RESULTS /2016 [facility] ELECTROLYT AGAP 13.4 10.0 - 06/17 ES 20.0 /2016 [facility] ELECTROLYT A/G Ratio 0.8 0.7 - 1.6 06/17 ES /2016 [facility] ELECTROLYT B/C Ratio 12 6 - 25 06/17 [facility] ELECTROLYT Globulin 4.3 2.7 - 4.2 06/17 [facility] ELECTROLYT eGFR 135 06/17 Result Comment: The [facility] eGFR is calculated using the CKD-EPI formula. In most young, healthy individuals the eGFR will be >90 mL/min/1.73m2 . The eGFR declines with age. An eGFR of 60-89 may be normal in some populations, particularly the elderly, for whom the CKD-EPI formula has not been extensively validated. Use of the eGFR is not recommended in the following populations:< br/>
Gloria viduals with unstable creatinine concentration s, including patients and those with serious co-morbid conditions.<b r/>
Patie nts with extremes in muscle mass or diet.

The data above are obtained from the National Kidney Disease Education Program (NKDEP) which additionally recommends that when the eGFR is used in patients with extremes of body mass index for purposes of drug dosing, the eGFR should be multiplied by the estimated BMI. ELECTROLYT Alk Phos 53 39 - 136 06/17 [facility] ELECTROLYT Bili Total 0.3 0.2 - 1.3 06/17 [facility] ELECTROLYT ALT 30 0 - 65 06/17 [facility] ELECTROLYT AST 15 0 - 37 06/17 [facility] ELECTROLYT BUN 6 7 - 22 06/17 [facility] ELECTROLYT Chloride Lvl 102 95 - 109 06/17 [facility] ELECTROLYT Potassium 3.4 3.5 - 5.1 06/17 ES Lvl [facility] ELECTROLYT Sodium Lvl 136 135 - 145 06/17 [facility] ELECTROLYT Creatinine 0.50 0.50 - 06/17 ES Lvl 1.40 /2016 [facility] ELECTROLYT Albumin Lvl 3.6 3.5 - 5.0 06/17 [facility] ELECTROLYT Total 7.9 6.4 - 8.4 06/17 ES Protein [facility] ELECTROLYT Calcium Lvl 9.0 8.5 - 10.5 06/17 [facility] ELECTROLYT CO2 24 24 - 32 06/17 [facility] ELECTROLYT Glucose Lvl 74 70 - 99 06/17 [facility] [place] [id number] 06/17 OGY /2016 [facility] HEMATOLOGY Eosinophils 0.8 0.0 - 4.0 06/17 /2016 [facility] HEMATOLOGY Basophils 0.3 0.0 - 1.0 06/17 /2016 [facility] HEMATOLOGY Lymphocytes 28.9 20.0 - 06/17 40.0 /2016 [facility] HEMATOLOGY Monocytes 8.4 2.0 - 12.0 06/17 /2016 [facility] HEMATOLOGY Lymphocytes 1.8 1.0 - 5.5 06/17 MH # /2017 [facility] HEMATOLOGY Monocytes # 0.5 0.0 - 0.8 06/17 /2016 [facility] HEMATOLOGY Eosinophils 0.1 0.0 - 0.5 06/17 MH # /2016 [facility] HEMATOLOGY Basophils # 0.0 0.0 - 0.2 06/17 /2016 [facility] HEMATOLOGY Segs-Bands # 3.8 1.5 - 8.1 06/17 [facility] HEMATOLOGY Segs 61.6 45.0 - 06/17 75.0 /2016 [facility] HEMATOLOGY MPV 7.3 7.4 - 10.4 06/17 /2016 [facility] HEMATOLOGY RDW 12.7 11.5 - 06/17 14.5 /2016 [facility] HEMATOLOGY Platelet 398 133 - 450 06/17 /2016 [facility] HEMATOLOGY MCHC 32.4 32.0 - 06/17 36.0 /2016 [facility] HEMATOLOGY MCV 86.7 80.0 - 06/17 98.0 /2016 [facility] HEMATOLOGY MCH 28.1 27.0 - 06/17 31.0 /2016 [facility] HEMATOLOGY Hct 32.7 36.0 - 06/17 48.0 /2017 [facility] HEMATOLOGY Hgb 10.6 12.0 - 06/17 16.0 /2016 [facility] HEMATOLOGY RBC 3.78 4.20 - 06/17 5.40 /2017 [facility] HEMATOLOGY WBC 6.3 3.7 - 10.4 06/17 /2016 [facility] URINE AND UA Color Katelynn 06/17 STOOL /2016 [facility] URINE AND UA <=1.0 0.1 - 1.0 06/17 STOOL Urobilinogen mg/dL /2016 [facility] URINE AND UA Turbidity Slight Clear 06/17 STOOL *ABN* /2016 [facility] (06/16/16 6:10 PM) URINE AND UA Spec Grav 1.027 <=1.030 06/17 STOOL /2016 [facility] URINE AND UA pH 5.0 5.0 - 8.0 06/17 STOOL [facility] URINE AND UA WBC 3 0 - 5 06/17 STOOL [facility] URINE AND UA RBC 3 0 - 2 06/17 STOOL [facility] URINE AND UA Protein Negative Negative 06/17 STOOL mg/dL mg/dL [facility] URINE AND UA Glucose Negative Negative 06/17 STOOL mg/dL mg/dL [facility] URINE AND UA Ketones Negative Negative 06/17 STOOL mg/dL mg/dL [facility] URINE AND UA Nitrite Negative Negative 06/17 [facility]OOL (06/16/16 6:10 PM) [facility] URINE AND UA Leuk Est Negative Negative 06/17 STOOL (06/16/16 6:10 PM) [facility] URINE AND UA Sq Epi Many /LPF Few /LPF 06/17 STOOL [facility] URINE AND UA Bacteria Occasional None Seen 06/17 STOOL /HPF /HPF [facility] URINE AND UA Mucus Many /LPF None Seen 06/17 STOOL /LPF [facility] URINE AND UA Blood Negative Negative 06/17 STOOL (06/16/16 6:10 PM) [facility] URINE AND UA Bili Negative Negative 06/17 STOOL *NA* /2016 [facility] (06/16/16 6:10 PM) Pathology Reports No Data Provided for This Section Diagnostic Reports Report Value Date Source Brain wo contrast CT Clinical Indication: ct dlp: 981.61 mgy-cm - head injury , blurred vision, dizziness, Pt reports heavy crates falling on her head while at work today @1500; no loc; no obvious injury, reports pain to top of head.; 05/30/2017 [facility] Comparison: None TECHNIQUE: CT images were obtained from the foramen magnum to the vertex without the use of intravenous contrast on a multidetector CT. Coronal and sagittal reconstructions were obtained. CT radiation dose DLP: 981.61 mGy-cm FINDINGS: [...] mass, hemorrhage or subacute stroke. SL: [id number] Consultation Notes No Data Provided for This Section Discharge Summaries No Data Provided for This Section History and Physicals No Data Provided for This Section Vital Signs Vital Sign Value Date Comments Source Temperature Oral (F) 98.4 F 05/31/2017 [facility] Systolic (mm Hg) 113 05/31/2017 [facility] Diastolic (mm Hg) 60 05/31/2017 [facility] Respitory Rate 16 05/31/2017 [facility] Heart Rate 73 05/31/2017 [facility] Height 175.26 cm 05/30/2017 [facility] Weight 82.727 05/30/2017 [facility] Temperature Oral (F) 99.3 F 05/30/2017 [facility] Heart Rate 76 05/30/2017 [facility] Respitory Rate 18 05/30/2017 [facility] BMI Calculated 26.93 05/30/2017 [facility] Systolic (mm Hg) 102 05/30/2017 [facility] Diastolic (mm Hg) 69 05/30/2017 [facility] Heart Rate 82 06/17/2016 [facility] Diastolic (mm Hg) 72 06/17/2016 [facility] Systolic (mm Hg) 119 06/17/2016 [facility] Respitory Rate 16 06/17/2016 [facility] Height 175.26 cm 06/16/2016 [facility] Weight 83.182 06/16/2016 [facility] BMI Calculated 27.08 06/16/2016 [facility] Temperature Oral (F) 98.7 F 06/16/2016 [facility] Respitory Rate 18 06/16/2016 [facility] Heart Rate 82 06/16/2016 [facility] Systolic (mm Hg) 114 06/16/2016 [facility] Diastolic (mm Hg) 72 06/16/2016 [facility] Encounters Location Location Encounter Encounter Reason Attending ADM DC Status Source Details Type Number For Provider Date Date Visit [facility] Emergency [id number] Rena 06/16 06/17 Héctor Alcaraz /2016 [facility] Emergency [id number] Kelly 05/30 05/31 KRISTEN [facility] Procedures No Data Provided for This Section Assessment and Plan No Data Provided for This Section Plan of Care No Data Provided for This Section Social History Social History Date Source Social History TypeResponse 06/17/2016 [facility] Smoking Status Never smoker; Exposure to Tobacco Smoke None; Cigarette Smoking Last 365 Days No; Reg Smoking Cessation Counseling No Social History TypeResponse 06/17/2016 [facility] Smoking Status Never smoker; Exposure to Tobacco Smoke None; Cigarette Smoking Last 365 Days No; Reg Smoking Cessation Counseling No Family History No Data Provided for This Section Advance Directives No Data Provided for This Section Functional Status No Data Provided for This Section
--- OUTSIDE RECORDS SUMMARY | 2018-12-17 10:13 | XMS REPORT ---
:1990 [facility] Address [address] [place] [address] Dr. [address]. [address] [place] [address] Care Team Providers Name Role Phone DAKOTA REES Primary Care Provider Unavailable DAKOTA REES Unavailable Unavailable Problems This patient has no known problems. Allergies, Adverse Reactions, Alerts This patient has no known allergies or adverse reactions. Medications This patient has no known medications. Encounters Start End Encounter Admission Attending Care Care Encounter Date/Time Date/Time Type Type Clinicians Facility Department ID 2016-11-13 2016-11-13 Outpatient [facility] [id number] 00:01:00 00:01:00 2016-10-31 2016-10-31 Emergency C [facility] [id number] 03:03:00 03:03:00 2016-10-23 2016-10-23 Outpatient [facility] [id number] 09:10:00 09:10:00 Results Test Description Test Time [...] 140-440 MPV (test code=MPV) 7.7 fL RPR, [id number] 03:18:00 Test Item Value Reference Range Comments RPR (test code=RPR) Non-Reactive Non-Reactive Lactate [id number] 01:06:00 Test Item Value Reference Range Comments LDH (test code=LDH) 144 U/L 135-214 Hemogram [id number] 01:03:00 Test Item Value Reference Range Comments [...] MPV (test code=MPV) 8.1 fL Comprehensive Metabolic [id number] 00:51:00 Test Item Value Reference Range Comments [...] race is not provided, and the patient isAfrican-Anguillan, multiply by 1.212. If sex is not provided, and thepatient is female, multiply by 0.742. Results for patients <18 years ofage have not been validated by the MDRD study and should be interpretedwith caution.eGFR Result Interpretation:eGFR > or=60 is in the Normal RangeeGFR < 60 may mean kidney diseaseeGFR < 15 may mean kidney failureRanges recommended by the National Kidney Foundation,http://nkdep.nih .gov Uric [id number] 00:51:00 Test Item Value Reference Range Comments Uric Acid (test code=UA) 3.6 mg/dL 2.4-5.7 Protein, Urine [id number] 00:50:00 Test Item Value Reference Range Comments TP, Urine (test code=TPURRM) 22.9 mg/dL Creatinine, Urine [id number] 00:50:00 Test Item Value Reference Range Comments Creatinine, Urine Rm (test code=CREURRM) 73.8 mg/dL 10.0-300.0 Blood [id number] 23:20:00 Test Item Value Reference Range Comments [...] (test 0 code=RESP RATE) Hep B Surface [id number] 14:37:00 Test Item Value Reference Range Comments Hep Bs Ag (test code=HBSAG) Nonreactive Non-Reactive CBC LD with [id number] 14:13:00 Test Item Value Reference Range Comments [...] Lymph Abs (test code=ALYMPH) 1.7 K/cumm 0.5-4.6 [place] Abs (test code=AMONO) 0.8 K/cumm 0.0-1.2 Eos Abs (test code=AEOS) 0.1 K/cumm 0.0-0.7 Baso Abs (test code=ABASO) 0.0 K/cumm 0.0-0.2 Chlamydia/GC [id number] 14:11:00 Test Item Value Reference Range Comments Chlamydia trachomatis, CATHLEEN (test uyic=048364) Negative Negative Neisseria gonorrhoeae, CATHLEEN (test neun=381839) Negative Negative Culture, Vaginal Strep [id number] 08:34:00Specimen: VaginaCollected: 10/12 19:39 Status: Final Last Updated: 10/16/2016 08:39 Culture Result ( Final) (Final) 10/15/16 No Group B Strep isolated at 24 hours 10/16/16 No Group B Strep isolated at 48 hoursCulture, [id number] 07:48:00Specimen: UrineCollected: 10/12/2016 18:21 Status: Final Last Updated: 10/15/2016 07: 48 Culture Result (Final) (Final) 10/14/16 <10,000 CFU/mL Gamma Hemolytic StreptococcusRPR, [id number] 03:18:00 Test Item Value Reference Range Comments RPR (test code=RPR) Non-Reactive Non-Reactive Rubella [id number] 03:18:00 Test Item Value Reference Range Comments Rubella IgG (test code=RUBELIGG) Immune Immune HIV [id number] 22:59:00 Test Item Value Reference Range Comments HIV 1/2 Antibody (test Non-Reactive Non-Reactive HIV1/2 Antibody screen result code=HIV1/2AB) indicates the absence of HIV1 and VBY0qhncofhkl.However, A Non-Reactive screen result does not rule [...] RNA Quantitative is recommended. Antibody Screen - [id number] 21:23:00 Test Item Value Reference Range Comments Antibody Screen (test code=ABSCR) Negative Blood Type and [id number] 21:22:00 Test Item Value Reference Range Comments ABO type (test code=ABO) A Rh Type (test code=RH) Positive Hep B Surface [id number] 21:06:00 Test Item Value Reference Range Comments Hep Bs Ag (test code=HBSAG) Nonreactive Non-Reactive Comprehensive Metabolic [id number] 20:56:00 Test Item Value Reference Range Comments [...] race is not provided, and the patient isAfrican-Anguillan, multiply by 1.212. If sex is not provided, and thepatient is female, multiply by 0.742. Results for patients <18 years ofage have not been validated by the MDRD study and should be interpretedwith caution.eGFR Result Interpretation:eGFR > or=60 is in the Normal RangeeGFR < 60 may mean kidney diseaseeGFR < 15 may mean kidney failureRanges recommended by the National Kidney Foundation,http://nkdep.nih .gov [id number] 20:56:00 Test Item Value Reference Range Comments [...] code=PROPOX) THC (test code=THC) Negative Negative Urinalysis [id number] 20:46:00 Test Item Value Reference Range Comments Color (test code=COLOR) Yellow Yellow,Straw,Pl yellow Clarity (test code=CLAR) Clear Clear Specific [place] (test code=SPGR) 1.007 1.001-1.035 pH (test code=PH) [...] (test code=MEXAM) Not indicated CBC LD with [id number] 20:40:00 Test Item Value Reference Range Comments [...] Lymph Abs (test code=ALYMPH) 1.7 K/cumm 0.5-4.6 [place] Abs (test code=AMONO) 0.6 K/cumm 0.0-1.2 Eos Abs (test code=AEOS) 0.1 K/cumm 0.0-0.7 Baso Abs (test code=ABASO) 0.0 K/cumm 0.0-0.2
--- NOTE | 2018-12-17 11:14 | ER ---
[facility]'s [facility] Name[facility] Crist[facility] Dunn Age: 28 yrs Sex: Female : 1990 Arrival Date: 12/17/2018 Time: 10:12 Bed 10 Private MD: Diagnosis: Dental root caries;Dental caries Presentation: 12/17 10:35 Presenting complaint: Patient states: woke up with swelling to right lower jaw, has iw dentist appt next week. Transition of care: patient was not received from another setting of care. Onset of symptoms was December 17, 2018. Risk Assessment: Do you want to hurt yourself or someone else? Patient reports no desire to harm self or others. Initial Sepsis Screen: Does the patient meet any 2 criteria? No. Patient's initial sepsis screen is negative. Does the patient have a suspected source of infection? No. Patient's initial sepsis screen is negative. Care prior to arrival: None. 10:35 Method Of Arrival: Ambulatory iw 10:35 Acuity: JESS 4 iw Triage Assessment: 10:36 EENT: Reports pain in right jaw. iw 11:00 General: Appears in no apparent distress. iw 11:00 General: Behavior is calm. iw PUMPER GAUGER: 10:36 LMP N/A - iw Historical: - Allergies: 10:36 Iodinated Contrast Media - IV Dye; iw - Home Meds: 10:36 None [Active]; iw - PMHx: 10:36 Ovarian cyst; iw - PSHx: 10:36 None; iw - Immunization history:: Adult Immunizations up to date. - Social history:: Smoking status: Patient/guardian denies using tobacco. - Ebola Screening: : Patient negative for fever greater than or equal to 101.5 degrees Fahrenheit, and additional compatible Ebola Virus Disease symptoms Patient denies exposure to infectious person Patient denies travel to an Ebola-affected area in the 21 days before illness onset No symptoms or risks identified at this time. - Family history:: not pertinent. Screenin:50 Abuse screen: Denies threats or abuse. Denies injuries from another. Nutritional iw screening: No deficits noted. Tuberculosis screening: No symptoms or risk factors identified. Fall Risk None identified. Assessment: 11:00 General: Appears in no apparent distress. Behavior is calm, cooperative. Pain: iw Complains of pain in right jaw. Neuro: Level of Consciousness is awake, alert, obeys commands, Oriented to person, place, time, situation. Cardiovascular: Patient's skin is warm and dry. Respiratory: Respiratory effort is even, unlabored. EENT: swelling to right jaw. Vital Signs: 10:36 BP 132 / 64; Pulse 74; Resp 16; Temp 98.2; Pulse Ox 100% on R/A; Pain 8/10; iw ED Course: 10:12 Patient arrived in ED. rg4 10:29 Leonel Silvestre MD is Attending Physician. deven 10:35 Deirdre Riley, RN is Primary Nurse. iw 10:36 Triage completed. iw 10:36 Arm band placed on. iw 10:36 Patient has correct armband on for positive identification. iw 11:01 Garrett Bryson DDS is Referral Physician. [facility] 11:52 No provider procedures requiring assistance completed. Patient did not have IV access iw during this emergency room visit. Administered Medications: 11:34 Drug: Clindamycin 600 mg Route: IM; Site: left vastus lateralis; iw 11:50 Follow up: Response: No adverse reaction iw 11:34 Drug: Clindamycin 300 mg Route: PO; iw 11:50 Follow up: Response: No adverse reaction iw 11:34 Drug: Motrin 600 mg Route: PO; iw 11:50 Follow up: Response: No adverse reaction iw Outcome: 11:02 Discharge ordered by . [facility] 11:52 Discharged to home ambulatory. iw 11:52 Condition: good 11:52 Discharge instructions given to patient, Instructed on discharge instructions, follow up and referral plans. medication usage, Demonstrated understanding of instructions, follow-up care, medications, Prescriptions given X 3. 11:53 Patient left the ED. iw Signatures: Leonel Silvestre MD MD cha Williams, Irene, RN RN iw Neelima Walsh rg4 Corrections: (The following items were deleted from the chart) 13:57 10:36 Pain 8/10; iw iw
[2018-12-17] MEDS ORDERED: CLINDAMYCIN HCL 150 MG CAP ONE (11:23)
[2018-12-17] MEDS ORDERED: IBUPROFEN 200 MG TAB PO ONE (11:23)
[2018-12-17] MEDS ORDERED: CLINDAMYCIN IV 150 MG/ML (4 mL) VIAL ONE (11:29)
--- NOTE | 2018-12-17 11:29 | EDPHYS ---
Physician Documentation [facility] Name: Cristiana Dunn Age: 28 yrs Sex: Female : 1990 Arrival Date: 12/17/2018 Time: 10:12 Bed 10 Private MD: SHARON Physician Leonel Silvestre HPI: 12/17 10:59 This 28 yrs old Female presents to ER via Ambulatory with complaints of Facial deven Swelling, Toothache. 10:59 The patient presents with broken tooth/teeth, pain, swelling. The problem is located in deven the right jaw. Onset: The symptoms/episode began/occurred 3 day(s) ago. Duration: The symptoms are continuous, and are steadily getting worse. Modifying factors: The symptoms are alleviated by nothing, the symptoms are aggravated by chewing, talking. Associated signs and symptoms: The patient has no apparent associated signs or symptoms. The patient has not experienced similar symptoms in the past. MANAGER INTERFACE: 10:36 LMP N/A - iw Historical: - Allergies: 10:36 Iodinated Contrast Media - IV Dye; iw - Home Meds: 10:36 None [Active]; iw - PMHx: 10:36 Ovarian cyst; iw - PSHx: 10:36 None; iw - Immunization history:: Adult Immunizations up to date. - Social history:: Smoking status: Patient/guardian denies using tobacco. - Ebola Screening: : Patient negative for fever greater than or equal to 101.5 degrees Fahrenheit, and additional compatible Ebola Virus Disease symptoms Patient denies exposure to infectious person Patient denies travel to an Ebola-affected area in the 21 days before illness onset No symptoms or risks identified at this time. - Family history:: not pertinent. ROS: 10:59 Constitutional: Negative for fever, chills, and weight loss, Eyes: Negative for injury, deven pain, redness, and discharge, Neck: Negative for injury, pain, and swelling, Cardiovascular: Negative for chest pain, palpitations, and edema, Respiratory: Negative for shortness of breath, cough, wheezing, and pleuritic chest pain, Abdomen/GI: Negative for abdominal pain, nausea, vomiting, diarrhea, and constipation, Back: Negative for injury and pain, : Negative for injury, bleeding, discharge, and swelling, MS/Extremity: Negative for injury and deformity, Skin: Negative for injury, rash, and discoloration, Neuro: Negative for headache, weakness, numbness, tingling, and seizure, Psych: Negative for depression, anxiety, suicide ideation, homicidal ideation, and hallucinations, Allergy/Immunology: Negative for hives, rash, and allergies, Endocrine: Negative for neck swelling, polydipsia, polyuria, polyphagia, and marked weight changes, Hematologic/Lymphatic: Negative for swollen nodes, abnormal bleeding, and unusual bruising. 10:59 ENT: Positive for dental pain. Exam: 10:59 Constitutional: This is a well developed, well nourished patient who is awake, alert, deven and in no acute distress. Eyes: Pupils equal round and reactive to light, extra-ocular motions intact. Lids and lashes normal. Conjunctiva and sclera are non-icteric and not injected. Cornea within normal limits. Periorbital areas with no swelling, redness, or edema. ENT: Nares patent. No nasal discharge, no septal abnormalities noted. Tympanic membranes are normal and external auditory canals are clear. Oropharynx with no redness, swelling, or masses, exudates, or evidence of obstruction, uvula midline. Mucous membranes moist. Neck: Trachea midline, no thyromegaly or masses palpated, and no cervical lymphadenopathy. Supple, full range of motion without nuchal rigidity, or vertebral point tenderness. No Meningismus. Chest/axilla: Normal chest wall appearance and motion. Nontender with no deformity. No lesions are appreciated. Cardiovascular: Regular rate and rhythm with a normal S1 and S2. No gallops, murmurs, or rubs. Normal PMI, no JVD. No pulse deficits. Respiratory: Lungs have equal breath sounds bilaterally, clear to auscultation and percussion. No rales, rhonchi or wheezes noted. No increased work of breathing, no retractions or nasal flaring. Abdomen/GI: Soft, non-tender, with normal bowel sounds. No distension or tympany. No guarding or rebound. No evidence of tenderness throughout. Back: No spinal tenderness. No costovertebral tenderness. Full range of motion. Skin: Warm, dry with normal turgor. Normal color with no rashes, no lesions, and no evidence of cellulitis. MS/ Extremity: Pulses equal, no cyanosis. Neurovascular intact. Full, normal range of motion. Neuro: Awake and alert, GCS 15, oriented to person, place, time, and situation. Cranial nerves II-XII grossly intact. Motor strength 5/5 in all extremities. Sensory grossly intact. Cerebellar exam normal. Normal gait. Psych: Awake, alert, with orientation to person, place and time. Behavior, mood, and affect are within normal limits. Vital Signs: 10:36 BP 132 / 64; Pulse 74; Resp 16; Temp 98.2; Pulse Ox 100% on R/A; Pain 8/10; iw MDM: 10:29 Patient medically screened. [facility] 11:01 Data reviewed: vital signs, nurses notes. [facility] Administered Medications: 11:34 Drug: Clindamycin 600 mg Route: IM; Site: left vastus lateralis; iw 11:50 Follow up: Response: No adverse reaction iw 11:34 Drug: Clindamycin 300 mg Route: PO; iw 11:50 Follow up: Response: No adverse reaction iw 11:34 Drug: Motrin 600 mg Route: PO; iw 11:50 Follow up: Response: No adverse reaction Disposition: 12/17/18 11:02 Discharged to Home. Impression: Dental root caries, Dental caries. - Condition is Stable. - Discharge Instructions: Dental Caries, Adult, Dental Pain, Dental Pain, Ylbw-ya-Nyki, Diet and Dental Disease. - Prescriptions for Clindamycin HCl 300 mg Oral Capsule - take 1 capsule by ORAL route every 6 hours for 10 days; 40 capsule. Ibuprofen 600 mg Oral Tablet - take 1 tablet by ORAL route every 8 hours As needed take with food; 21 tablet. Tylenol- Codeine #3 300-30 mg Oral Tablet - take 2 tablet by ORAL route every 6 hours As needed; 30 tablet. - Medication Reconciliation Form, Thank You Letter, Antibiotic Education, Prescription Opioid Use form. - Follow up: Private Physician; When: 2 - 3 days; Reason: Recheck today's complaints, Continuance of care, Re-evaluation by your physician. Follow up: Garrett Bryson DDS; When: 1 - 2 days; Reason: Recheck today's complaints, Re-evaluation by your physician. - Problem is new. - Symptoms have improved. Signatures: Leonel Silvestre MD MD cha Williams, Irene, RN RN Corrections: (The following items were deleted from the chart) 11:53 11:02 12/17/2018 11:02 Discharged to Home. Impression: Dental root caries; Dental iw caries. Condition is Stable. Forms are Medication Reconciliation Form, Thank You Letter, Antibiotic Education, Prescription Opioid Use. Follow up: Private Physician; When: 2 - 3 days; Reason: Recheck today's complaints, Continuance of care, Re-evaluation by your physician. Follow up: Garrett Bryson; When: 1 - 2 days; Reason: Recheck today's complaints, Re-evaluation by your physician. Problem is new. Symptoms have improved. deven
== END 2018-12-17 11:53 | disposition home or self-care (01) ==
LOC: ER 10:10
DX: K02.7 Dental root caries (principal); K02.9 Dental caries, unspecified; Z91.041 Radiographic dye allergy status
CPT/HCPCS: 96372; 99283; S0077

== ENCOUNTER 2019-01-13 18:45 | Emergency (ER) | payer OTHER ==
--- OUTSIDE RECORDS SUMMARY | 2019-01-13 18:47 | XMS REPORT | Continuity of Care Document ---
:1990 Author Organization [employer] Care Team Providers Name Role Phone [employer] Unavailable Unavailable Problems Problem Status Onset Classification Date Comments Source Date Reported Discharge 05/30/20 06/02/2017 Diagnosis: Acute 17 [facility] head injury Discharge 05/30/20 06/02/2017 Diagnosis: Brain 17 [facility] concussion HEAD PAIN Active 05/30/20 17 [facility] Discharge 06/16/19 06/19/2016 Diagnosis: 17 [facility] Abdominal pain during OTHER Active 06/16/[address] Gastroenteritis Resolved Problem 06/02/2017 [facility] Medications Medication Details Route Status Patient Ordering Order Source Instructions Provider Date Acetaminophen 650 mg, 2 Inactive tab, 017 [facility] Route: PO, Drug form: TAB, ONCE, Dosing Weight 82.727, kg, Priority: STAT, Start date: 05/30/17 22:10:00 [employer], Stop date: 05/30/17 22:10:00 CSTNotes: Do not exceed 4 gm/day. (Same as: Tylenol) Saline Flush 10 mL, Inactive 0.9% Route: 017 [facility] IVP, Drug Form: INJ, kg, PRN, PRN Line Flush, Start date: 06/16/16 16:50:00 [employer], Duration: 30 day, Stop date: 07/16/16 16:49:00 CSTNotes: (Same as: BD Posiflush) Allergies, Adverse Reactions, Alerts Substance Category Reaction Severity Reaction Status Date Comments Source type Reported contrast Assertion Drug Active media allergy [place] (iodine-bas ed) Immunizations No Data Provided for This Section Results Order Name Results Value Reference Date Interpretation Comments Source Range BLOOD BANK ABO/Rh A POS 06/17 RESULTS /2016 [facility] ELECTROLYT AGAP 13.4 10.0 - 06/17 ES 20.0 /2016 [facility] ELECTROLYT A/G Ratio 0.8 0.7 - 1.6 06/17 ES /2016 [facility] ELECTROLYT B/C Ratio 12 6 - 25 06/17 [facility] ELECTROLYT Globulin 4.3 2.7 - 4.2 06/17 [facility] ELECTROLYT eGFR 135 06/17 Result Comment: The [facility] eGFR is calculated using the CKD-EPI formula. [...] Alk Phos 53 39 - 136 06/17 [facility] ELECTROLYT Bili Total 0.3 0.2 - 1.3 06/17 [facility] ELECTROLYT ALT 30 0 - 65 06/17 [facility] ELECTROLYT AST 15 0 - 37 06/17 [facility] ELECTROLYT BUN 6 7 - 22 06/17 [facility] ELECTROLYT Chloride Lvl 102 95 - 109 06/17 [facility] ELECTROLYT Potassium 3.4 3.5 - 5.1 06/17 ES Lvl [facility] ELECTROLYT Sodium Lvl 136 135 - 145 06/17 [facility] ELECTROLYT Creatinine 0.50 0.50 - 06/17 ES Lvl 1.40 /2016 [facility] ELECTROLYT Albumin Lvl 3.6 3.5 - 5.0 06/17 [facility] ELECTROLYT Total 7.9 6.4 - 8.4 06/17 ES Protein [facility] ELECTROLYT Calcium Lvl 9.0 8.5 - 10.5 06/17 [facility] ELECTROLYT CO2 24 24 - 32 06/17 [facility] ELECTROLYT Glucose Lvl 74 70 - 99 06/17 [facility] [place] [address] 06/17 OGY /2016 [facility] HEMATOLOGY Eosinophils 0.8 0.0 - 4.0 06/17 /2016 [facility] HEMATOLOGY Basophils 0.3 0.0 - 1.0 06/17 /2016 [facility] HEMATOLOGY Lymphocytes 28.9 20.0 - 06/17 40.0 /2016 [facility] HEMATOLOGY Monocytes 8.4 2.0 - 12.0 06/17 /2016 [facility] HEMATOLOGY Lymphocytes 1.8 1.0 - 5.5 06/17 MH # /2017 [facility] HEMATOLOGY Monocytes # 0.5 0.0 - 0.8 06/17 /2016 [facility] HEMATOLOGY Eosinophils 0.1 0.0 - 0.5 06/17 MH # /2016 [facility] HEMATOLOGY Basophils # 0.0 0.0 - 0.2 06/17 /2016 [facility] HEMATOLOGY Segs-Bands # 3.8 1.5 - 8.1 06/17 [facility] HEMATOLOGY Segs 61.6 45.0 - 06/17 75.0 /2016 [facility] HEMATOLOGY MPV 7.3 7.4 - 10.4 06/17 /2016 [facility] HEMATOLOGY RDW 12.7 11.5 - 06/17 14.5 /2016 [facility] HEMATOLOGY Platelet 398 133 - 450 06/17 /2016 [facility] HEMATOLOGY MCHC 32.4 32.0 - 06/17 36.0 /2016 [facility] HEMATOLOGY MCV 86.7 80.0 - 06/17 98.0 /2016 [facility] HEMATOLOGY MCH 28.1 27.0 - 06/17 31.0 /2016 [facility] HEMATOLOGY Hct 32.7 36.0 - 06/17 48.0 /2017 [facility] HEMATOLOGY Hgb 10.6 12.0 - 06/17 16.0 /2016 [facility] HEMATOLOGY RBC 3.78 4.20 - 06/17 5.40 /2017 [facility] HEMATOLOGY WBC 6.3 3.7 - 10.4 06/17 /2016 [facility] URINE AND UA Color Katelynn 06/17 STOOL /2016 [facility] URINE AND UA <=1.0 0.1 - 1.0 06/17 STOOL Urobilinogen mg/dL /2016 [facility] URINE AND UA Turbidity Slight Clear 06/17 STOOL *ABN* /2016 [facility] (06/16/16 6:10 PM) URINE AND UA Spec Grav 1.027 <=1.030 06/17 STOOL /2016 [facility] URINE AND UA pH 5.0 5.0 - 8.0 06/17 STOOL [facility] URINE AND UA WBC 3 0 - 5 06/17 STOOL [facility] URINE AND UA RBC 3 0 - 2 06/17 STOOL [facility] URINE AND UA Protein Negative Negative 06/17 STOOL mg/dL mg/dL [facility] URINE AND UA Glucose Negative Negative 06/17 [facility] mg/dL mg/dL [facility] URINE AND UA Ketones Negative Negative 06/17 [facility] mg/dL mg/dL [facility] URINE AND UA Nitrite Negative Negative 06/17 [facility] (06/16/16 6:10 PM) [facility] URINE AND UA Leuk Est Negative Negative 06/17 [facility] (06/16/16 6:10 PM) [facility] URINE AND UA Sq Epi Many /LPF Few /LPF 06/17 STOOL [facility] URINE AND UA Bacteria Occasional None Seen 06/17 [facility] /HPF /HPF [facility] URINE AND UA Mucus Many /LPF None Seen 06/17 STOOL /LPF [facility] URINE AND UA Blood Negative Negative 06/17 [facility] (06/16/16 6:10 PM) [facility] URINE AND UA Bili Negative Negative 06/17 [facility] *NA* /2016 [facility] (06/16/16 6:10 PM) Pathology Reports No Data Provided for This Section Diagnostic Reports Report Value Date Source Brain wo contrast CT Clinical Indication: ct dlp: 981.61 mgy-cm - head injury , blurred vision, dizziness, Pt reports heavy crates falling on her head while at work today @1500; no loc; no obvious injury, reports pain to top of head.; 05/30/2017 [facility] Comparison: None TECHNIQUE: CT images [...] Source Temperature Oral (F) 98.4 F 05/31/2017 [facility] Systolic (mm Hg) 113 05/31/2017 [facility] Diastolic (mm Hg) 60 05/31/2017 [facility] Respitory Rate 16 05/31/2017 [facility] Heart Rate 73 05/31/2017 [facility] Height 175.26 cm 05/30/2017 [facility] Weight 82.727 05/30/2017 [facility] Temperature Oral (F) 99.3 F 05/30/2017 [facility] Heart Rate 76 05/30/2017 [facility] Respitory Rate 18 05/30/2017 [facility] BMI Calculated 26.93 05/30/2017 [facility] Systolic (mm Hg) 102 05/30/2017 [facility] Diastolic (mm Hg) 69 05/30/2017 [facility] Heart Rate 82 06/17/2016 [facility] Diastolic (mm Hg) 72 06/17/2016 [facility] Systolic (mm Hg) 119 06/17/2016 [facility] Respitory Rate 16 06/17/2016 [facility] Height 175.26 cm 06/16/2016 [facility] Weight 83.182 06/16/2016 [facility] BMI Calculated 27.08 06/16/2016 [facility] Temperature Oral (F) 98.7 F 06/16/2016 [facility] Respitory Rate 18 06/16/2016 [facility] Heart Rate 82 06/16/2016 [facility] Systolic (mm Hg) 114 06/16/2016 [facility] Diastolic (mm Hg) 72 06/16/2016 [facility] Encounters Location Location Encounter Encounter Reason Attending ADM DC Status Source Details Type Number For Provider Date Date Visit [facility] Emergency [id number] Rena 06/16 06/17 Héctor Alcaraz /2016 [facility] Emergency [id number] Kelly 05/30 05/31 KRISTEN [facility] Procedures No Data Provided for This Section Assessment and Plan No Data Provided for This Section Plan of Care No Data Provided for This Section Social History Social History Date Source Social History TypeResponse 06/17/2016 [facility] Smoking Status Never smoker; Exposure to Tobacco Smoke None; Cigarette Smoking Last 365 Days No; Reg Smoking Cessation Counseling No Social History TypeResponse 06/17/2016 [facility] Smoking Status Never smoker; Exposure to Tobacco Smoke None; Cigarette Smoking Last 365 Days No; Reg Smoking Cessation Counseling No Family History No Data Provided for This Section Advance Directives No Data Provided for This Section Functional Status No Data Provided for This Section
--- OUTSIDE RECORDS SUMMARY | 2019-01-13 18:48 | XMS REPORT ---
:1990 [facility] Address [address] [place] [address] Care Team Providers Name Role Phone DAKOTA REES Primary Care Provider Unavailable DAKOTA REES Unavailable Unavailable Problems This patient has no known problems. Allergies, Adverse Reactions, Alerts This patient has no known allergies or adverse reactions. Medications This patient has no known medications. Encounters Start End Encounter Admission Attending Care Care Encounter Date/Time Date/Time Type Type Clinicians Facility Department ID 2016-11-13 2016-11-13 Outpatient [facility] [id number] 00:01:00 00:01:00 2016-10-31 2016-10-31 Emergency C [facility] [id number] 03:03:00 03:03:00 2016-10-23 2016-10-23 Outpatient [facility] [id number] 09:10:00 09:10:00 Results Test Description Test Time [...] 140-440 MPV (test code=MPV) 7.7 fL RPR, [id number] 03:18:00 Test Item Value Reference Range Comments RPR (test code=RPR) Non-Reactive Non-Reactive Lactate [id number] 01:06:00 Test Item Value Reference Range Comments LDH (test code=LDH) 144 U/L 135-214 Hemogram [id number] 01:03:00 Test Item Value Reference Range Comments [...] MPV (test code=MPV) 8.1 fL Comprehensive Metabolic [id number] 00:51:00 Test Item Value Reference Range Comments [...] race is not provided, and the patient isAfrican-Nigerian, multiply by 1.212. If sex is not provided, and thepatient is female, multiply by 0.742. Results for patients <18 years ofage have not been validated by the MDRD study and should be interpretedwith caution.eGFR Result Interpretation:eGFR > or=60 is in the Normal RangeeGFR < 60 may mean kidney diseaseeGFR < 15 may mean kidney failureRanges recommended by the National Kidney Foundation,http://nkdep.nih .gov Uric [id number] 00:51:00 Test Item Value Reference Range Comments Uric Acid (test code=UA) 3.6 mg/dL 2.4-5.7 Protein, Urine [id number] 00:50:00 Test Item Value Reference Range Comments TP, Urine (test code=TPURRM) 22.9 mg/dL Creatinine, Urine [id number] 00:50:00 Test Item Value Reference Range Comments Creatinine, Urine Rm (test code=CREURRM) 73.8 mg/dL 10.0-300.0 Blood [id number] 23:20:00 Test Item Value Reference Range Comments [...] (test 0 code=RESP RATE) Hep B Surface [id number] 14:37:00 Test Item Value Reference Range Comments Hep Bs Ag (test code=HBSAG) Nonreactive Non-Reactive CBC LD with [id number] 14:13:00 Test Item Value Reference Range Comments [...] Lymph Abs (test code=ALYMPH) 1.7 K/cumm 0.5-4.6 [place] Abs (test code=AMONO) 0.8 K/cumm 0.0-1.2 Eos Abs (test code=AEOS) 0.1 K/cumm 0.0-0.7 Baso Abs (test code=ABASO) 0.0 K/cumm 0.0-0.2 Chlamydia/GC [id number] 14:11:00 Test Item Value Reference Range Comments Chlamydia trachomatis, CATHLEEN (test ojlo=[id number]) Negative Negative Neisseria gonorrhoeae, CATHLEEN (test kcvc=[id number]) Negative Negative Culture, Vaginal Strep [id number] 08:34:00Specimen: VaginaCollected: 10/12 19:39 Status: Final Last Updated: 10/16/2016 08:39 Culture Result ( Final) (Final) 10/15/16 No Group B Strep isolated at 24 hours 10/16/16 No Group B Strep isolated at 48 hoursCulture, [id number] 07:48:00Specimen: UrineCollected: 10/12/2016 18:21 Status: Final Last Updated: 10/15/2016 07: 48 Culture Result (Final) (Final) 10/14/16 <10,000 CFU/mL Gamma Hemolytic StreptococcusRPR, [id number] 03:18:00 Test Item Value Reference Range Comments RPR (test code=RPR) Non-Reactive Non-Reactive Rubella [id number] 03:18:00 Test Item Value Reference Range Comments Rubella IgG (test code=RUBELIGG) Immune Immune HIV [id number] 22:59:00 Test Item Value Reference Range Comments HIV 1/2 Antibody (test Non-Reactive Non-Reactive HIV1/2 Antibody screen result code=HIV1/2AB) indicates the absence of HIV1 and SXO5ntvbperit.However, A Non-Reactive screen result does not rule [...] RNA Quantitative is recommended. Antibody Screen - [id number] 21:23:00 Test Item Value Reference Range Comments Antibody Screen (test code=ABSCR) Negative Blood Type and [id number] 21:22:00 Test Item Value Reference Range Comments ABO type (test code=ABO) A Rh Type (test code=RH) Positive Hep B Surface [id number] 21:06:00 Test Item Value Reference Range Comments Hep Bs Ag (test code=HBSAG) Nonreactive Non-Reactive Comprehensive Metabolic [id number] 20:56:00 Test Item Value Reference Range Comments [...] race is not provided, and the patient isAfrican-Nigerian, multiply by 1.212. If sex is not provided, and thepatient is female, multiply by 0.742. Results for patients <18 years ofage have not been validated by the MDRD study and should be interpretedwith caution.eGFR Result Interpretation:eGFR > or=60 is in the Normal RangeeGFR < 60 may mean kidney diseaseeGFR < 15 may mean kidney failureRanges recommended by the National Kidney Foundation,http://nkdep.nih .gov [id number] 20:56:00 Test Item Value Reference Range Comments [...] code=PROPOX) THC (test code=THC) Negative Negative Urinalysis [id number] 20:46:00 Test Item Value Reference Range Comments Color (test code=COLOR) Yellow Yellow,Straw,Pl yellow Clarity (test code=CLAR) Clear Clear Specific [place] (test code=SPGR) 1.007 1.001-1.035 pH (test code=PH) [...] (test code=MEXAM) Not indicated CBC LD with [id number] 20:40:00 Test Item Value Reference Range Comments [...] Lymph Abs (test code=ALYMPH) 1.7 K/cumm 0.5-4.6 [place] Abs (test code=AMONO) 0.6 K/cumm 0.0-1.2 Eos Abs (test code=AEOS) 0.1 K/cumm 0.0-0.7 Baso Abs (test code=ABASO) 0.0 K/cumm 0.0-0.2
[2019-01-13] MEDS ORDERED: NA CHLORIDE 0.9% 1,000 ML ONE (19:41)
[2019-01-13 19:54] LABS: Urine Blood NEGATIVE (NEG); Urine Glucose NEGATIVE (NEG); Urine Protein NEGATIVE (NEG); Urine Specific Gravity >1.030 (1.005-1.030); Urine pH 5.5 (5.0-7.0)
[2019-01-13 19:54] LABS: Urine Specific Gravity >1.030 (1.005-1.030)
[2019-01-13 20:08] LABS: Absolute Lymphocytes (CBC) 2.8 K/uL (0.7-4.9); Basophils % 0.8 % (0-1.3); Hematocrit 37.7 % (36.0-45.0); MPV 7.6 fL (7.6-11.3)
[2019-01-13 20:26] LABS: BUN Blood Urea Nitrogen 14 mg/dL (7-18); Bicarbonate 27 mmol/L (21-32); Glucose Level 88 mg/dL (74-106); Potassium 4.1 mmol/L (3.5-5.1); Sodium Level 140 mmol/L (136-145)
--- NOTE | 2019-01-13 20:29 | ER ---
Nurse's Notes [facility] Name: Cristiana Dunn Age: 28 yrs Sex: Female : 1990 Arrival Date: 01/13/2019 Time: 18:45 Bed 25 Private MD: Diagnosis: Lower abdominal pain, unspecified;Other specified irregular menstruation Presentation: 01/13 19:08 Presenting complaint: Patient states: "I have abdominal pain and I have missed my aa5 period for 7 days. I took a test and it was negative." Reports abdominal pain for the past 4 days. Reports nausea, denies V/D. Denies fever. Transition of care: patient was not received from another setting of care. Onset of symptoms was December 2018. Risk Assessment: Do you want to hurt yourself or someone else? Patient reports no desire to harm self or others. Initial Sepsis Screen: Does the patient meet any 2 criteria? No. Patient's initial sepsis screen is negative. Does the patient have a suspected source of infection? No. Patient's initial sepsis screen is negative. Care prior to arrival: None. 19:08 Method Of Arrival: Ambulatory aa5 19:08 Acuity: JESS 3 aa5 Triage Assessment: 19:10 General: Appears in no apparent distress. comfortable, Behavior is calm, cooperative, aa5 appropriate for age. Pain: Complains of pain in suprapubic area Pain currently is 10 out of 10 on a pain scale. Neuro: Level of Consciousness is awake, alert, obeys commands. Cardiovascular: Patient's skin is warm and dry. Respiratory: Airway is patent Respiratory effort is even, unlabored, Respiratory pattern is regular, symmetrical. GI: Reports nausea, Patient currently denies diarrhea, vomiting. : Denies burning with urination. 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 - Social history:: Smoking status: Patient uses tobacco products, smokes one pack cigarettes per day. - Ebola Screening: : Patient denies travel to an Ebola-affected area in the 21 days before illness onset. Screenin:31 Abuse screen: Denies threats or abuse. Denies injuries from another. Nutritional ch screening: No deficits noted. Tuberculosis screening: No symptoms or risk factors identified. Fall Risk None identified. Assessment: 19:31 Reassessment: Patient appears in no apparent distress at this time. Patient and/or ch family updated on plan of care and expected duration. Pain level reassessed. Patient is alert, oriented x 3, equal unlabored respirations, skin warm/dry/pink. General: Appears in no apparent distress. comfortable, Behavior is calm, cooperative, appropriate for age. Pain: Complains of pain in pelvis and suprapubic area Pain currently is 5 out of 10 on a pain scale. Pain began gradually. Neuro: No deficits noted. Cardiovascular: No deficits noted. Respiratory: No deficits noted. GI: Bowel sounds present X 4 quads. Abd is soft and non tender X 4 quads. Reports lower abdominal pain. : Reports suprapubic pain, and missed period. states she is concerned she is . Derm: Skin is intact, Skin is normal, brown. Vital Signs: 19:10 BP 118 / 62; Pulse 78; Resp 18; Temp 98.4; Pulse Ox 96% on R/A; Pain 10/10; aa5 ED Course: 18:45 Patient arrived in ED. as 19:06 Marilou Iyer [facility]C [facility]. kb 19:06 Maikol Holman MD is Attending Physician. kb 19:09 Triage completed. aa5 19:10 Arm band placed on Patient placed in waiting room, Patient notified of wait time. aa5 19:17 Michelle Hilton, RN is Primary Nurse. 19:20 Urine collected: clean catch specimen, clear, shadia colored. 19:31 No apparent distress. Resting quietly. ch 19:31 Patient has correct armband on for positive identification. Bed in low position. Call light in reach. 19:31 No provider procedures requiring assistance completed. 19:39 Door closed. Noise minimized. Warm blanket given. 19:46 Initial lab(s) drawn, by me, sent to lab. Missed attempt(s): 20 gauge in left lt1 antecubital area. 19:49 Inserted saline lock: 20 gauge in right antecubital area, using aseptic technique. Blood collected. 21:05 IV discontinued, intact, bleeding controlled, No redness/swelling at site. Pressure mg2 dressing applied. Administered Medications: 19:51 Drug: NS 0.9% 1000 ml Route: IV; Rate: 1000 ml; Site: right antecubital; 21:02 Follow up: Response: No adverse reaction; IV Status: Completed infusion; IV Intake: mg2 1000ml 20:42 Drug: TORadol - Ketorolac 15 mg Route: IVP; Site: right antecubital; 21:02 Follow up: Response: No adverse reaction; Marked relief of symptoms mg2 Intake: 21:02 IV: 1000ml; Total: 1000ml. mg2 Outcome: 20:28 Discharge ordered by . beatrice 21:05 Discharged to home ambulatory. mg2 21:05 Condition: stable 21:05 Discharge instructions given to patient, Instructed on discharge instructions, follow up and referral plans. Demonstrated understanding of instructions, follow-up care. 21:06 Patient left the ED. mg2 Signatures: Marilou Iyer, HEARING AID CONSULTANT-C HEARING AID CONSULTANT-Ckb Michelle Hilton, RN RN Teresa Keller Audri, RN RN aa5 Darvin Perales RN RN mg2 Grimm, Samra 1 Corrections: (The following items were deleted from the chart) 19:40 19:31 Patient did not have IV access during this emergency room visit. [facility]
--- NOTE | 2019-01-13 20:29 | EDPHYS ---
Physician Documentation [facility] Name: Cristiana Dunn Age: 28 yrs Sex: Female : 1990 Arrival Date: 01/13/2019 Time: 18:45 Bed 25 Private MD: ED Physician Maikol Holman HPI: 01/13 19:58 This 28 yrs old Female presents to ER via Ambulatory with complaints of kb Abdominal Pain. 19:58 The patient presents with abdominal pain in the lower abdomen. Onset: The kb symptoms/episode began/occurred 4 day(s) ago. 19:58 The symptoms do not radiate. Associated signs and symptoms: Pertinent positives: missed kb period. The symptoms are described as constant. Modifying factors: The symptoms are alleviated by nothing, the symptoms are aggravated by nothing. Severity of pain: At its worst the pain was mild in the emergency department the pain is unchanged. The patient has not experienced similar symptoms in the past. The patient has not recently seen a physician. Pt reports she has had lower abd pain for 4 days and her period is late (LMP 12/07/18). Took a test today that was negative so she came in. 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 - Social history:: Smoking status: Patient uses tobacco products, smokes one pack cigarettes per day. - Ebola Screening: : Patient denies travel to an Ebola-affected area in the 21 days before illness onset. ROS: 19:56 Constitutional: Negative for fever, chills, and weight loss, Neck: Negative for injury, kb pain, and swelling, Cardiovascular: Negative for chest pain, palpitations, and edema, Respiratory: Negative for shortness of breath, cough, wheezing, and pleuritic chest pain, Back: Negative for injury and pain, : Negative for injury, bleeding, discharge, and swelling, MS/Extremity: Negative for injury and deformity, Skin: Negative for injury, rash, and discoloration, Neuro: Negative for headache, weakness, numbness, tingling, and seizure. 19:56 Abdomen/GI: Positive for abdominal pain. Exam: 20:00 Constitutional: This is a well developed, well nourished patient who is awake, alert, kb and in no acute distress. Head/Face: Normocephalic, atraumatic. Chest/axilla: Normal chest wall appearance and motion. Nontender with no deformity. No lesions are appreciated. Cardiovascular: Regular rate and rhythm with a normal S1 and S2. No gallops, murmurs, or rubs. Normal PMI, no JVD. No pulse deficits. Respiratory: Lungs have equal breath sounds bilaterally, clear to auscultation and percussion. No rales, rhonchi or wheezes noted. No increased work of breathing, no retractions or nasal flaring. Back: No spinal tenderness. No costovertebral tenderness. Full range of motion. Skin: Warm, dry with normal turgor. Normal color with no rashes, no lesions, and no evidence of cellulitis. MS/ Extremity: Pulses equal, no cyanosis. Neurovascular intact. Full, normal range of motion. Neuro: Awake and alert, GCS 15, oriented to person, place, time, and situation. Cranial nerves II-XII grossly intact. Motor strength 5/5 in all extremities. Sensory grossly intact. Cerebellar exam normal. Normal gait. 20:00 Abdomen/GI: Inspection: abdomen appears normal, Bowel sounds: normal, in all quadrants, Palpation: soft, in all quadrants, mild abdominal tenderness, in the suprapubic area and left lower quadrant. Vital Signs: 19:10 BP 118 / 62; Pulse 78; Resp 18; Temp 98.4; Pulse Ox 96% on R/A; Pain 10/10; aa5 MDM: 19:20 Patient medically screened. kb 19:59 Data reviewed: vital signs, nurses notes. Data interpreted: Pulse oximetry: on room air kb is 96 %. Interpretation: normal. 20:28 Counseling: I had a detailed discussion with the patient and/or guardian regarding: the kb historical points, exam findings, and any diagnostic results supporting the discharge/admit diagnosis, lab results, the need for outpatient follow up, a family practitioner, to return to the emergency department if symptoms worsen or persist or if there are any questions or concerns that arise at home. 01/13 19:34 Order name: Basic Metabolic Panel; Complete Time: 20:27 kb 01/13 19:34 Order name: CBC with Diff; Complete Time: 20:45 kb 01/13 19:34 Order name: Urine --Ancillary (enter results); Complete Time: 19:56 kb 01/13 19:37 Order name: Urine Dipstick--Ancillary (enter results); Complete Time: 19:56 kb 01/13 20:10 Order name: CBC Smear Scan; Complete Time: 20:45 EDMS 01/13 19:34 Order name: IV Saline Lock; Complete Time: 19:46 kb 01/13 19:34 Order name: Labs collected and sent; Complete Time: 19:46 kb Administered Medications: 19:51 Drug: NS 0.9% 1000 ml Route: IV; Rate: 1000 ml; Site: right antecubital; 21:02 Follow up: Response: No adverse reaction; IV Status: Completed infusion; IV Intake: mg2 1000ml 20:42 Drug: TORadol - Ketorolac 15 mg Route: IVP; Site: right antecubital; 21:02 Follow up: Response: No adverse reaction; Marked relief of symptoms mg2 Disposition: 01/13/19 20:28 Discharged to Home. Impression: Lower abdominal pain, unspecified, Other specified irregular menstruation. - Condition is Stable. - Discharge Instructions: Abdominal Pain, Adult, [id number]. - Medication Reconciliation Form, Thank You Letter, Antibiotic Education, Prescription Opioid Use form. - Follow up: Emergency Department; When: As needed; Reason: Worsening of condition. Follow up: Private Physician; When: 2 - 3 days; Reason: Recheck today's complaints, Continuance of care, Re-evaluation by your physician. Addendum: 01/17/2019 08:52 Co-signature as Attending Physician, Maikol Holman MD I agree with the assessment and k dr plan of care. Signatures: Dispatcher [employer] EDMarilou Gao FNP-C FNP-Michelle Doe, RN RN Maikol Holman MD MD [facility] Brenna Veloz RN RN aa5 Darvin Perales RN RN mg2 Corrections: (The following items were deleted from the chart) 01/13 19:59 19:58 Onset: The symptoms/episode began/occurred 3 day(s) ago, kb kb 21:06 20:28 01/13/2019 20:28 Discharged to Home. Impression: Lower abdominal pain, mg2 unspecified; Other specified irregular menstruation. Condition is Stable. Discharge Instructions: Abdominal Pain, Adult, [id number]. Forms are Medication Reconciliation Form, Thank You Letter, Antibiotic Education, Prescription Opioid Use. Follow up: Emergency Department; When: As needed; Reason: Worsening of condition. Follow up: Private Physician; When: 2 - 3 days; Reason: Recheck today's complaints, Continuance of care, Re-evaluation by your physician. kb
[2019-01-13 20:41] LABS: Blood Morphology Comment NOT SEEN (NOT SEEN); Platelet Estimate INCR; Urine White Blood Cell Casts OK
[2019-01-13] MEDS ORDERED: KETOROLAC 30 MG/ML INJ ONE (20:42)
== END 2019-01-13 21:06 | disposition home or self-care (01) ==
LOC: ER 18:45
DX: N92.5 Other specified irregular menstruation (principal); F17.210 Nicotine dependence, cigarettes, uncomplicated; Z91.041 Radiographic dye allergy status
CPT/HCPCS: 36415; 80048; 81003; 81025; 85025; 96361; 96374; 99283; J7030